=== PATIENT | female | born 1965 | race Caucasian/White ===

== ENCOUNTER 2017-01-22 21:00 | Emergency (ER) ==
[2017-01-22 21:13] VITALS: BP 142/89; TEMP 98.9; BMI 35.5
[2017-01-22 21:29] LABS: BASOPHILS % (AUTO) 0.5 % (0.0-3.0); EOSINOPHILS # (AUTO) 0.1 K/ul (0.0-0.7); EOSINOPHILS % (AUTO) 0.9 % (0.0-7.0); HEMATOCRIT 42.6 % (37.0-47.0); HEMOGLOBIN 14.4 g/dl (12.0-16.0); IMMATURE GRANULOCYTE % (AUTO) 0.2 % (0.0-5.0); LYMPHOCYTES # (AUTO) 2.7 K/uL (0.60-3.4); LYMPHOCYTES % (AUTO) 41.5 (10.0-50.0); MEAN CORPUSCULAR HEMOGLOBIN 31.2 pg (27.0-31.0); MEAN CORPUSCULAR HGB CONC 33.8 (31.8-35.4); MEAN CORPUSCULAR VOLUME 92.4 fl (81.0-99.0); MONOCYTES # (AUTO) 0.5 K/uL (0.4-2.0); MONOCYTES % (AUTO) 6.9 (0-10); NEUTROPHILS # (AUTO) 3.3 K/ul (2.0-6.9); PLATELET COUNT 251 10^3/uL (140-440); RED BLOOD COUNT 4.61 10^6/ul (4.20-5.40)
[2017-01-22 21:41] LABS: SERUM PREGNANCY INTERNAL QC INTERNAL QC VALID
[2017-01-22 21:41] LABS: BILIRUBIN,URINE Negative (NEGATIVE); KETONES,URINE Negative (NEGATIVE); LEUKOCYTE ESTERASE ,URINE Negative (NEGATIVE); NITRITE,URINE Negative (NEGATIVE); PROTEIN,URINE Negative (NEGATIVE); URINE, BLOOD 1+ (NEGATIVE)
[2017-01-22 21:42] LABS: PROTHROMBIN TIME 10.6 SEC (9.3-11.0)
[2017-01-22 21:47] LABS: ADD URINE MICROSCOPIC YES
[2017-01-22 21:51] LABS: COCAIN SCREEN,URINE NEGATIVE (NEGATIVE)
[2017-01-22 21:53] LABS: ALANINE AMINOTRANSFERASE 10 U/L (12-78); ALBUMIN 3.3 g/dL (3.4-5.0); ALKALINE PHOSPHATASE 75 U/L (42-98); ANION GAP 11.6; ASPARTATE AMINO TRANSFERASE 14 U/L (15-37); BILIRUBIN,TOTAL 0.31 mg/dL (0.00-1.20); BLOOD UREA NITROGEN 7 mg/dL (7-18); BUN/CREATININE RATIO 10.14; CALCIUM 8.7 mg/dL (8.2-10.2); CARBON DIOXIDE 22 mmol/L (21-32); CHLORIDE 110 mmol/L (98-107); CREATINE KINASE 49 U/L; CREATININE 0.69 mg/dL (0.60-1.30); GLUCOSE 93 mg/dL (70-110); POTASSIUM 3.6 mmol/L (3.5-5.10); SODIUM 140 mmol/L (136-145); TOTAL PROTEIN 6.6 g/dL (6.4-8.2)
[2017-01-22] MEDS ORDERED: ZOFRAN 4 MG/2 ML IVP STA (21:56)
[2017-01-22 22:00] LABS: ERYTHROCYTE SEDIMENTATION RATE 13 mm/hr (0-20); ESR INTERNAL QC INTERNAL QC VALID
--- NOTE | 2017-01-22 22:08 | CT ---
Examination: CT head without contrast 01/22/2017 Clinical information: Left-sided numbness. Comparison: 11/12/2014. TECHNIQUE: Noncontrast helical imaging from the foramen magnum to the vertex. 5 mm axial, 3 mm sag ittal and 3 mm coronal images are submitted for review. FINDINGS: There is no evidence of acute intracranial hemorrhage. There is a suggestion of a Chiari I malformation with approximately 7 mm of cerebellar tonsillar ectopia and crowding of the foramen magnum. The ventricles are normal in size and configuration. There is no mass effect, midline shif t or extra-axial abnormality. There is normal perkins-white matter differentiation. The calvarium is intact. No CT evidence of an acute ischemic infarct. Impression: 1. No CT evidence of acute intracranial abnormality. 2. Chiari I malformation. This finding could be more completely evaluated with non emergent MRI.
[2017-01-22] MEDS ORDERED: ASPIRIN EC PO STA (23:23)
--- NOTE | 2017-01-22 23:26 | ED.PDOC ---
General ED Provider: Dr. BJORN RAMIREZ-ER Chief Complaint: Stroke Stated Complaint: my mouth and left arm are numb Time Seen by Physician: 21:05 Mode of Arrival: Walk-In Information Source: Patient, Family Exam Limitations: No limitations Primary [facility] Nursing and Triage Documentation Reviewed and Agree: Yes Neurological Complaint Exam - Weakness Complaint/Exam Last Known Well: unknown ?yesterday Onset: Gradual Duration: several hours Symptoms Are: Still present Timing: Intermittent Initial Severity: Mild Current Severity: Mild Character: Reports: Dizzy Aggravating: Reports: None Alleviating: Reports: None Associated Signs and Symptoms: Reports: Unsteady gait. Denies: Nausea, Vomiting , Diaphoresis, Tinnitus, Chest pain, Short of air, Palpitations, GI blood loss, Visual changes, Decreased oral intake, Change in medication, Change in diet, OTC meds, Loss of balance Cardiac Risk Factors: Reports: Smoking CVA Risk Factors: Reports: None Related Surgical History: Reports: None JVD Present: No Carotid Bruit Present: No Rectal Heme Positive: No Glascow Coma Scale (see protocol): 15 Nystagmus Present: No Gag Reflex Present: Yes Meningeal Signs Positive: No Focal Weakness: Present: None Focal Sensory Loss: Present: None Gait: Normal [id number]: Normal Findings Romberg Test Positive: No Babinski Sign: Negative Right, Negative Left Heel to Toe Normal: Yes Ladson-Hallpike Test Positive: No Differential Diagnoses: Other Quality Indicator For Non-Traumatic Chest Pain/Syncope: EKG Performed Review of Systems - Review Of Systems Constitutional: Reports: No symptoms Eyes: Reports: No symptoms Ears, Nose, Mouth, Throat: Reports: No symptoms Respiratory: Reports: No symptoms Cardiac: Reports: No symptoms GI: Reports: No symptoms : Reports: No symptoms Musculoskeletal: Reports: No symptoms Skin: Reports: No symptoms Neurological: Reports: Tingling Endocrine: Reports: No symptoms Hematologic/Lymphatic: Reports: No symptoms All Other Systems: Reviewed and Negative Past Medical History - Past Medical History Endocrine: Reports: None Cardiovascular: Reports: None Respiratory: Reports: None Hematological: Reports: None Gastrointestinal: Reports: None Genitourinary: Reports: None Neuro/Psych: Reports: Anxiety Musculoskeletal: Reports: Other Cancer: Reports: None Last Menstrual Period: PRESENTLY - Surgical History General Surgical History: Reports: Other (STOMACH,anx) - Family History Family History: Reports: Stroke, Other (mother of CVA age 56 after having had neck pain), Unknown - Social History Smoking Status: Current every day smoker, Light tobacco smoker Hx Substance Use: No Alcohol Screening: None Lives: With family - Immunizations Tetanus Shot up to Date: Yes Physical Exam - Physical Exam Appearance: Well-appearing, No pain distress, Well-nourished Eyes: DENISHA ENT: Ears normal, Nose normal, Oropharynx normal Neck: Supple Respiratory: Airway patent, Breath sounds clear, Breath sounds equal, Respirations nonlabored Cardiovascular: RRR GI/: Soft Musculoskeletal: Normal strength Skin: Warm Neurological: Alert, Oriented Psychiatric: Affect appropriate, Mood appropriate, Anxious Interpretation - Radiology Interpretation Radiology Interpretation By: Radiologist Radiology Results: Negative Exam Interpreted: CT Scan - EKG Interpretation Time of EKG #1: 23:26 Rate: Normal Rhythm: Sinus Ectopy: None [place]: NL ST Segment: Normal Interpretation: nsr Physician Notification - Case Discussed Physician Notified: dr palacio--recommended [place] transfer for neurology consult Time of Notification: 00:13 Critical Care Note - Critical Care Note Total Time (mins): 0 Course - Course Hematology/Chemistry: 01/22/17 21:25 01/22/17 21:25 Orders, Labs, Meds: Lab Review 01/22/17 01/22/17 21:25 21:30 WBC 6.50 RBC 4.61 Hgb 14.4 Hct 42.6 MCV 92.4 MCH 31.2 H MCHC 33.8 RDW Coeff of Luis Manuel 13.3 Plt Count 251 Immature Gran % (Auto) 0.2 Neut % (Auto) 50.0 Lymph % (Auto) 41.5 [place] % (Auto) 6.9 Eos % (Auto) 0.9 Baso % (Auto) 0.5 Immature Gran # (Auto) 0.0 Neut # 3.3 Lymph # 2.7 [place] # 0.5 Eos # 0.1 Baso # 0.0 ESR 13 PT 10.6 INR 1.03 D-Dimer (Manual) 313.34 Sodium 140 Potassium 3.6 Chloride 110 H Carbon Dioxide 22 Anion Gap 11.6 BUN 7 Creatinine 0.69 Estimated GFR (MDRD) 90.00 BUN/Creatinine Ratio 10.14 Glucose 93 Calcium 8.7 Total Bilirubin 0.31 AST 14 L ALT 10 L Alkaline Phosphatase 75 Total Creatine Kinase 49 Troponin I < 0.0100 Total Protein 6.6 Albumin 3.3 L Globulin 3.3 Albumin/Globulin Ratio 1.00 Serum , Qual Negative Urine Color Yellow Urine Clarity Clear Urine pH 7.0 Ur Specific [place] 1.015 Urine Protein Negative Urine Glucose (UA) Negative Urine Ketones Negative Urine Blood 1+ Urine Nitrite Negative Urine Bilirubin Negative Urine Urobilinogen 0.2 Ur Leukocyte Esterase Negative Urine Microscopic RBC 0-2 Ur Squamous Epith Cells 2-5 Urine Opiates Screen Negative Ur Oxycodone Screen Negative Urine Methadone Screen Negative Ur Propoxyphene Screen Negative Ur Barbiturates Screen Negative U Tricyclic Antidepress Negative Ur Phencyclidine Scrn Negative Ur Amphetamine Screen Negative U Methamphetamines Scrn Negative U Benzodiazepines Scrn Positive Urine Cocaine Screen Negative U Cannabinoids Screen Negative Orders Category Date Time Status EKG-(ED ONLY) Stat CARDIO 01/22/17 21:16 Completed TRANSFER TO OUTSIDE FACILITY .TO [facility] 01/22/17 23:27 Active ([place], [place]) WRITE TRANSFER/SBAR NOTE ONCE CARE 01/22/17 23:27 Active DISCHARGE ASSESSMENT ONCE DISCHARGE 01/22/17 23:27 Active WRITE DISCHARGE NOTE ONCE DISCHARGE 01/22/17 23:27 Active 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] .ONCE EMERGENCY 01/22/17 21:17 Active IV [ED IV/MEDIPORT/POWERPORT] .ONCE EMERGENCY 01/22/17 21:21 Active CBC W/ AUTO DIFF Stat LAB 01/22/17 21:25 Completed COMPREHENSIVE METABOLIC PANEL Stat LAB 01/22/17 21:25 Completed CREATINE KINASE Stat LAB 01/22/17 21:25 Completed D-DIMER Stat LAB 01/22/17 21:25 Completed ESR Stat LAB 01/22/17 21:25 Completed PT WITH INR Stat LAB 01/22/17 21:25 Completed SERUM Stat LAB 01/22/17 21:25 Completed TROPONIN I Stat LAB 01/22/17 21:25 Completed URINALYSIS C & S IF INDICATED Stat LAB 01/22/17 21:30 Completed URINE DRUG SCREEN (RAPID FOR ED) [DRUG SCREEN, URINE, LAB 01/22/17 21:30 Completed RAPID] Stat 0.9 % Sodium Chloride [Saline Flush] MEDS 01/22/17 21:21 Discontinued 1 syr IVF PRN PRN Aspirin [Aspirin EC] MEDS 01/22/17 23:23 Discontinued 325 mg PO ONCE STA Ondansetron HCl/Pf [Zofran 4 mg/2 ml] MEDS 01/22/17 21:56 Discontinued 4 mg IVP ONCE STA CT HEAD W/O CONTRAST Stat RADS 01/22/17 21:20 Completed Medications Discontinued Medications Generic Name Dose Route Start Last Admin Trade Name Freq PRN Reason Stop Dose Admin Aspirin 325 mg 01/22/17 23:23 01/22/17 23:29 Aspirin Ec PO 01/22/17 23:24 325 mg ONCE STA Administration Ondansetron HCl 4 mg 01/22/17 21:56 01/22/17 22:00 Zofran 4 Mg/2 Ml IVP 01/22/17 21:57 4 mg ONCE STA Administration Sodium Chloride 1 syr 01/22/17 21:21 01/22/17 22:02 Saline Flush IVF 1 syr PRN PRN Administration To flush IV Vital Signs: Temp Pulse Resp BP Pulse Ox 01/22/17 21:01 98.9 F 96 H 18 142/89 H 94 L Departure - Departure Time of Disposition: 23:26 Disposition: TSF SHORT-TRM HOSP Discharge Problem: Numbness and tingling in left arm Instructions: Paresthesia (ED) Condition: Good Pt referred to PMD for follow-up: Yes Allergies/Adverse Reactions: Allergies codeine Adverse Reaction (Verified 01/22/17 21:11) Home Medications: Ambulatory Orders Ibuprofen [Motrin] 600 mg PO QID PRN #30 tablet 04/24/16 Alprazolam [Xanax Xr] 2 mg PO BID #60 07/13/16 Alprazolam [Xanax] 1 mg PO BID PRN #60 07/13/16 Transfer Form Completed: Yes Disposition Discussed With: Patient, Family
== END 2017-01-23 00:40 | disposition short-term general hospital (02) ==
LOC: ED 21:00
DX: R20.0 Anesthesia of skin (principal); R42 Dizziness and giddiness; R26.81 Unsteadiness on feet; F17.210 Nicotine dependence, cigarettes, uncomplicated; Z82.3 Family history of stroke
CPT/HCPCS: 36415; 80053; 80306; 81001; 82550; 84484; 84703; 85025; 85379; 85610; 85651; 93005; 93010; 96374; 99285

== ENCOUNTER 2017-08-22 13:28 | Emergency (ER) ==
[2017-08-22 13:43] VITALS: BP 130/85; TEMP 98.4; BMI 34.8
--- NOTE | 2017-08-22 13:56 | ED.PDOC ---
General ED Provider: Dr. TORRES ELISE Chief Complaint: Extremity Swelling/Pain Stated Complaint: Bilateral lower extremity swelling; chest pain last night; sore throat Time Seen by Physician: 13:45 Mode of Arrival: Walk-In Information Source: Patient Exam Limitations: No limitations Primary Care Provider: [facility] Nursing and Triage Documentation Reviewed and Agree: Yes Cardiovascular Complaint Exam - Chest Pain Complaint/Exam Onset: Gradual Duration: 2 hours Symptoms Are: Resolved Timing: Constant Initial Severity: Moderate Location: Reports: Left lateral Character: Reports: Sharp, Stabbing Aggravating: Reports: None Alleviating: Reports: None Associated Signs and Symptoms: Reports: Calf pain, Calf swelling (Bilateral swelling). Denies: Diaphoresis, Nausea, Vomiting, Fever, Palpitations, Cough, Hemoptysis, Back pain, Abdominal pain, Dizziness, Short of air Review of Systems - Review Of Systems Constitutional: Reports: No symptoms Cardiac: Reports: Chest pain (Last PM; believes gas pain) Musculoskeletal: Reports: Other (Bilateral lower leg edema) All Other Systems: Reviewed and Negative Past Medical History - Past Medical History Endocrine: Reports: None Cardiovascular: Reports: None Respiratory: Reports: None Hematological: Reports: None Gastrointestinal: Reports: None Genitourinary: Reports: None Neuro/Psych: Reports: Anxiety Musculoskeletal: Reports: Other Cancer: Reports: None Last Menstrual Period: hysterectomy - Surgical History General Surgical History: Reports: Other (STOMACH,anx) - Family History Family History: Reports: Stroke, Other (mother of CVA age 56 after having had neck pain), Unknown - Social History Smoking Status: Current every day smoker, Light tobacco smoker Hx Substance Use: No Alcohol Screening: None Physical Exam - Physical Exam Appearance: Ill-appearing Ill-appearing: Mild (Post op from Sunday hysterectomy - on pain medicaitons) Pain Distress: Mild Eyes: DENISHA, EOMI, Conjunctiva clear ENT: Nose normal, Oropharynx normal Neck: Supple Respiratory: Airway patent, Breath sounds clear, Breath sounds equal Cardiovascular: RRR, Pulses normal GI/: Soft, Nontender Musculoskeletal: Normal strength, ROM intact, Edema (Bilateral LE edema - non pitting) Skin: Warm, Dry, Normal color Neurological: Sensation intact, Motor intact, Alert, Oriented Psychiatric: Affect appropriate, Mood appropriate Interpretation - EKG Interpretation Time of EKG #1: 14:06 Rate: Normal Rhythm: Sinus Ectopy: None [place]: NL ST Segment: Normal Interpretation: No acute changes Critical Care Note - Critical Care Note Total Time (mins): 35 Course - Course Hematology/Chemistry: 08/22/17 14:00 08/22/17 14:00 Orders, Labs, Meds: Lab Review 08/22/17 08/22/17 14:00 14:00 WBC 6.18 RBC 3.85 L Hgb 12.3 Hct 36.1 L MCV 93.8 MCH 31.9 H MCHC 34.1 RDW Coeff of Luis Manuel 13.3 Plt Count 219 Immature Gran % (Auto) 0.3 Neut % (Auto) 65.4 Lymph % (Auto) 26.1 [place] % (Auto) 6.8 Eos % (Auto) 1.1 Baso % (Auto) 0.3 Immature Gran # (Auto) 0.0 Neut # 4.0 Lymph # 1.6 [place] # 0.4 Eos # 0.1 Baso # 0.0 Sodium 140 Potassium 3.7 Chloride 105 Carbon Dioxide 29 Anion Gap 9.7 BUN 8 Creatinine 0.70 Estimated GFR (MDRD) 89.00 BUN/Creatinine Ratio 11.42 Glucose 94 Calcium 8.5 Total Bilirubin 0.37 AST 97 H ALT 93 H Alkaline Phosphatase 157 H Troponin I < 0.0100 Total Protein 6.5 Albumin 2.8 L Globulin 3.7 Albumin/Globulin Ratio 0.76 Orders Category Date Time Status EKG-(ED ONLY) Stat CARDIO 08/22/17 13:56 Completed CBC W/ AUTO DIFF Stat LAB 08/22/17 14:00 Completed COMPREHENSIVE METABOLIC PANEL Stat LAB 08/22/17 14:00 Completed MOLECULAR GROUP A STREP Stat LAB 08/22/17 14:20 Results STREP SCREEN Stat LAB 08/22/17 14:20 Results TROPONIN I Stat LAB 08/22/17 14:00 Completed CHEST, 1V AP ONLY Stat RADS 08/22/17 13:56 Completed ULTRASOUND VENOUS SCAN PRAVEEN LEGS [U/S VENOUS SCAN PRAVEEN RADS 08/22/17 13:58 Completed LEGS] Stat Strep reported negataive, Vital Signs: Temp Pulse Resp BP Pulse Ox 08/22/17 13:28 98.4 F 81 20 130/85 95 ESTEE Risk Score ESTEE Risk Score: Risk Score Odds of by 30D 0 0.1 (0.1-0.2) 1 0.3 (0.2-0.3) 2 0.4 (0.3-0.5) 3 0.7 (0.6-0.9) 4 1.2 (1.0-1.5) 5 2.2 (1.9-2.6) 6 3.0 (2.5-3.6) 7 4.8 (3.8-6.1) Departure - Departure Time of Disposition: 16:17 Disposition: HOME SELF-CARE Discharge Problem: Edema of both legs Instructions: Leg Edema (ED) Condition: Good Pt referred to PMD for follow-up: Yes (Call for appointment) Additional Instructions: Resume usual medicaitons and post op instructions; elevate legs just above hear level as often as possible Allergies/Adverse Reactions: Allergies codeine Adverse Reaction (Verified 08/22/17 13:42) Home Medications: Ambulatory Orders Ibuprofen [Motrin] 600 mg PO QID PRN #30 tablet 04/24/16 Ondansetron HCl [Zofran] 4 mg PO Q6HR PRN 08/22/17 Oxycodone HCl/Acetaminophen [Percocet 7.5-325 mg Tablet] 1 each PO Q6HR PRN
[2017-08-22 14:11] LABS: BASOPHILS % (AUTO) 0.3 % (0.0-3.0); EOSINOPHILS # (AUTO) 0.1 K/ul (0.0-0.7); EOSINOPHILS % (AUTO) 1.1 % (0.0-7.0); HEMATOCRIT 36.1 % (37.0-47.0); HEMOGLOBIN 12.3 g/dl (12.0-16.0); IMMATURE GRANULOCYTE % (AUTO) 0.3 % (0.0-5.0); LYMPHOCYTES # (AUTO) 1.6 K/uL (0.60-3.4); LYMPHOCYTES % (AUTO) 26.1 (10.0-50.0); MEAN CORPUSCULAR HEMOGLOBIN 31.9 pg (27.0-31.0); MEAN CORPUSCULAR HGB CONC 34.1 (31.8-35.4); MEAN CORPUSCULAR VOLUME 93.8 fl (81.0-99.0); MONOCYTES # (AUTO) 0.4 K/uL (0.4-2.0); MONOCYTES % (AUTO) 6.8 (0-10); NEUTROPHILS % (AUTO) 65.4; PLATELET COUNT 219 10^3/uL (140-440); RED BLOOD COUNT 3.85 10^6/ul (4.20-5.40); WHITE BLOOD COUNT 6.18 K/ul (4.6-10.2)
--- NOTE | 2017-08-22 15:10 | DI ---
Exam: Single x-ray of the chest. Comparison: 07/03/2016. Reason for exam: Chest pain. FINDINGS: No pneumothorax, pleural effusion, or focal consolidation. The cardiac silhouette is not enlarged. The imaged osseous structures appear grossly unremarkable without acute fracture. There is a linear density in the left femoral head likely representing summation artifact. Impression: 1. No acute cardiopulmonary process. 2. Subtle linear density in the left femoral head is likely secondary to summation artifact. If cli nical concern exists for fracture. Dedicated x-rays of the left shoulder may be performed for furthe r characterization.
[2017-08-22 15:20] LABS: ALANINE AMINOTRANSFERASE 93 U/L (12-78); ALBUMIN 2.8 g/dL (3.4-5.0); ALBUMIN/GLOBULIN RATIO 0.76; ALKALINE PHOSPHATASE 157 U/L (42-98); ANION GAP 9.7; ASPARTATE AMINO TRANSFERASE 97 U/L (15-37); BILIRUBIN,TOTAL 0.37 mg/dL (0.00-1.20); BLOOD UREA NITROGEN 8 mg/dL (7-18); BUN/CREATININE RATIO 11.42; CALCIUM 8.5 mg/dL (8.2-10.2); CARBON DIOXIDE 29 mmol/L (21-32); CHLORIDE 105 mmol/L (98-107); GLUCOSE 94 mg/dL (70-110); POTASSIUM 3.7 mmol/L (3.5-5.10); SODIUM 140 mmol/L (136-145); TOTAL PROTEIN 6.5 g/dL (6.4-8.2)
--- NOTE | 2017-08-22 15:34 | US ---
EXAM: Bilateral lower extremity venous doppler. HISTORY: Bilateral lower extremity pain and swelling. Recent hysterectomy. COMPARISON: None available. TECHNIQUE: Multiple grayscale and color doppler images were obtained. FINDINGS: There is normal flow, compressibility and augmentation of flow within the right and left c ommon femoral, greater saphenous, profunda, femoral, popliteal, posterior tibial, anterior tibial and peroneal veins. IMPRESSION: No evidence for right or left lower extremity deep vein thrombosis at the levels examined.
== END 2017-08-22 16:30 | disposition home or self-care (01) ==
LOC: ED 13:28
DX: R60.0 Localized edema (principal); J02.9 Acute pharyngitis, unspecified; Z98.890 Other specified postprocedural states; F17.210 Nicotine dependence, cigarettes, uncomplicated
CPT/HCPCS: 36415; 80053; 84484; 85025; 87651; 87880; 93005; 93010; 99283

== ENCOUNTER 2017-12-14 11:59 | Emergency (ER) | payer OTHER ==
[2017-12-14 12:06] VITALS: BP 132/84; TEMP 97.8; BMI 35.0
[2017-12-14] MEDS ORDERED: TORADOL IM STA (12:21)
[2017-12-14] MEDS ORDERED: ZOFRAN 4 MG/2 ML IM STA (12:46)
--- NOTE | 2017-12-14 13:06 | CT ---
EXAM: CT scan abdomen pelvis without contrast HISTORY: Left flank pain COMPARISON: None. FINDINGS: Contiguous axial images obtained through the abdomen pelvis without contrast utilizing 3-m m collimation. Sagittal and coronal reconstructions were imaged and reviewed.. The visualized lung bases are clear. Gallstones are seen within the gallbladder. The liver pancreas spleen and adrenal glands have normal unenhanced CT appearance. The abdominal aorta is normal course and caliber withou t aneurysm formation. There is umbilical hernia containing only fat. There is normal appendix. The re has been prior hysterectomy.. There is minimal diverticulosis without diverticulitis. There is mo derate left-sided perinephric stranding which extends along the proximal ureter there is no significa nt hydronephrosis, hydroureter, nephrolithiasis ureterolithiasis. The findings may be related recent passage of a calculus versus infection. The bladder is small volumed and incompletely evaluated. IMPRESSION: Left-sided perinephric stranding which involves the proximal ureter without evidence of nephrolithias is or ureterolithiasis. . Consider recent passage of a calculus versus infection.
[2017-12-14] MEDS ORDERED: LIDOCAINE HCL 1% SDV IM STA (13:27)
[2017-12-14] MEDS ORDERED: ROCEPHIN IM STA (13:27)
--- NOTE | 2017-12-14 13:36 | ED.PDOC ---
General ED Provider: Dr. ZARINA ACOSTA Chief Complaint: Urinary Problem Stated Complaint: flank pain left Time Seen by Physician: 12:00 Mode of Arrival: Walk-In Information Source: Patient Exam Limitations: No limitations [facility] Nursing and Triage Documentation Reviewed and Agree: Yes Reviewed sepsis parameters & appropriate labs ordered?: Yes System Inflammatory Response Syndrome: Not Applicable Sepsis Protocol: For patient's 13 years and over: Temp is 96.8 and below OR 101 and greater Pulse >90 BPM Resp >20/minute Acutely Altered Mental Status Are patient's symptoms suggestive of a new infection, such as: -Pneumonia -Skin, Soft Tissue -Endocarditis -UTI -Bone, Joint Infection -Implantable Device -Acute Abdominal Infection -Wound Infection -Meningitis -Blood Stream Catheter Infection -Unknown System Inflammatory Response Syndrome: Not Applicable Musculoskeletal Complaint Exam - Back Pain Complaint/Exam Mechanism of Injury: Reports: No known trauma Onset/Duration: back pain 14 hrs ago mainly left flank apin Symptoms Are: Still present Timing: Constant Episodes Lasting: Hours Initial Severity: Moderate Current Severity: Moderate Location: Reports: Discrete Character: Reports: Aching, Spasmodic Aggravating: Reports: Movements Alleviating: Reports: None Associated Signs and Symptoms: Denies: Swelling, Redness, Bruising, Fever, Weakness, Numbness, Tingling, Abdominal pain, Flank pain, Bladder incontinence, Bowel incontinence, Weight loss, Pain with weight bearing TAD Risk Factors: Reports: None AAA Risk Factors: Reports: None Cauda Equina Risk Factors: Reports: None Epidural Abcess Risk Factors: Reports: None Related Surgical History: Reports: None Focal Tenderness: No Paraspinal Muscle Tenderness: No Paraspinal Muscle Spasm: No Scoliosis: No Lordosis: No Kyphosis: No SLR Test: Right Negative, Left Negative Hip Motion Testing Pain: Right Negative, Left Negative Focal Weakness: Present: None Focal Sensory Loss: Present: None Review of Systems - Review Of Systems Constitutional: Reports: No symptoms Eyes: Reports: No symptoms Ears, Nose, Mouth, Throat: Reports: No symptoms Respiratory: Reports: No symptoms Cardiac: Reports: No symptoms GI: Reports: No symptoms : Reports: Dysuria, Flank pain Musculoskeletal: Reports: No symptoms Skin: Reports: No symptoms Neurological: Reports: No symptoms Endocrine: Reports: No symptoms Hematologic/Lymphatic: Reports: No symptoms All Other Systems: Reviewed and Negative Past Medical History - Past Medical History Previously Healthy: Yes Endocrine: Reports: None Cardiovascular: Reports: None Respiratory: Reports: None Hematological: Reports: None Gastrointestinal: Reports: None Genitourinary: Reports: None Neuro/Psych: Reports: Anxiety Musculoskeletal: Reports: Other Cancer: Reports: None Last Menstrual Period: hysterectomy - Surgical History General Surgical History: Reports: Other (STOMACH,anx) - Family History Family History: Reports: Stroke, Other (mother of CVA age 56 after having had neck pain), Unknown - Social History Smoking Status: Current every day smoker, Light tobacco smoker Hx Substance Use: No Alcohol Screening: None Physical Exam - Physical Exam Appearance: Well-appearing, No pain distress, Well-nourished Eyes: DENISHA, EOMI, Conjunctiva clear ENT: Ears normal, Nose normal, Oropharynx normal Respiratory: Airway patent, Breath sounds clear, Breath sounds equal, Respirations nonlabored Cardiovascular: RRR, Pulses normal, No rub, No murmur GI/: Soft, Nontender, No masses, Bowel sounds normal, No Organomegaly Musculoskeletal: Normal strength, ROM intact, No edema, No calf tenderness Skin: Warm, Dry, Normal color Neurological: Sensation intact, Motor intact, Reflexes intact, Cranial nerves intact, Alert, Oriented Psychiatric: Affect appropriate, Mood appropriate Critical Care Note - Critical Care Note Total Time (mins): 0 Course - Course Hematology/Chemistry: 12/14/17 12:30 12/14/17 12:30 Orders, Labs, Meds: Lab Review 12/14/17 12/14/17 12/14/17 12:20 12:30 12:30 WBC 6.98 RBC 4.22 Hgb 13.3 Hct 39.3 MCV 93.1 MCH 31.5 H MCHC 33.8 RDW Coeff of Luis Manuel 14.3 Plt Count 206 Immature Gran % (Auto) 0.3 Neut % (Auto) 71.2 Lymph % (Auto) 17.6 [place] % (Auto) 10.2 H Eos % (Auto) 0.3 Baso % (Auto) 0.4 Immature Gran # (Auto) 0.0 Neut # (Auto) 5.0 Lymph # (Auto) 1.2 [place] # (Auto) 0.7 Eos # (Auto) 0.0 Baso # (Auto) 0.0 Sodium 142 Potassium 4.1 Chloride 108 H Carbon Dioxide 25 Anion Gap 13.1 BUN 14 Creatinine 0.78 Estimated GFR (MDRD) 78.00 BUN/Creatinine Ratio 17.94 Glucose 97 Calcium 9.2 Total Bilirubin 0.7 AST 16 ALT 10 L Alkaline Phosphatase 88 Total Protein 6.9 Albumin 3.3 L Globulin 3.6 Albumin/Globulin Ratio 0.92 Urine Color Yellow Urine Clarity Clear Urine pH 6.5 Ur Specific [place] 1.010 Urine Protein 1+ Urine Glucose (UA) Negative Urine Ketones Negative Urine Blood 3+ Urine Nitrite Negative Urine Bilirubin Negative Urine Urobilinogen 0.2 Ur Leukocyte Esterase Negative Urine Microscopic RBC 10-20 Urine Microscopic WBC Not Reportable Ur Squamous Epith Cells 2-5 Orders Category Date Time Status CBC W/ AUTO DIFF Stat LAB 12/14/17 12:30 Completed COMPREHENSIVE METABOLIC PANEL Stat LAB 12/14/17 12:30 Completed URINALYSIS C & S IF INDICATED Stat LAB 12/14/17 12:20 Completed Ketorolac Tromethamine [Toradol] MEDS 12/14/17 12:21 Discontinued 60 mg IM ONCE STA Lidocaine HCl/Pf [Lidocaine HCl 1% Sdv] MEDS 12/14/17 13:27 Discontinued 2.1 ml IM ONCE STA Ondansetron HCl/Pf [Zofran 4 mg/2 ml] MEDS 12/14/17 12:46 Discontinued 4 mg IM ONCE STA CT ABD/PEL WO RENAL STONE PROT Stat RADS 12/14/17 12:20 Completed Medications Discontinued Medications Generic Name Dose Route Start Last Admin Trade Name Freq PRN Reason Stop Dose Admin Ketorolac Tromethamine 60 mg 12/14/17 12:21 12/14/17 12:34 Toradol IM 12/14/17 12:22 60 mg ONCE STA Administration Lidocaine HCl 2.1 ml 12/14/17 13:27 Lidocaine Hcl 1% Sdv IM 12/14/17 13:28 ONCE STA Ondansetron HCl 4 mg 12/14/17 12:46 12/14/17 12:56 Zofran 4 Mg/2 Ml IM 12/14/17 12:47 4 mg ONCE STA Administration Vital Signs: Temp Pulse Resp BP Pulse Ox 12/14/17 12:00 97.8 F 94 H 20 132/84 95 Departure - Departure Time of Disposition: 13:38 Disposition: HOME SELF-CARE Discharge Problem: Urinary symptoms, Kidney stone Instructions: Renal Colic (ED), Urinary Tract Infection in Women (DC) Condition: Good Pt referred to PMD for follow-up: Yes IPMP verified?: Yes Prescriptions: Hydrocodone/Acetaminophen [[place] 10-325 Tablet] 1 each PO Q8HR #7 tablet Ciprofloxacin HCl [Cipro] 500 mg PO Q12HR 5 Days #10 tablet Allergies/Adverse Reactions: Allergies codeine Adverse Reaction (Verified 08/22/17 13:42) Home Medications: Ambulatory Orders Ibuprofen [Motrin] 600 mg PO QID PRN #30 tablet 04/24/16 Ciprofloxacin HCl [Cipro] 500 mg PO Q12HR 5 Days #10 tablet 12/14/17 Hydrocodone/Acetaminophen [Grandin 10-325 Tablet] 1 each PO Q8HR #7 tablet
== END 2017-12-14 13:47 | disposition home or self-care (01) ==
LOC: ED 11:59
DX: N20.0 Calculus of kidney (principal); F17.210 Nicotine dependence, cigarettes, uncomplicated
CPT/HCPCS: 36415; 74176; 80053; 81001; 85025; 96372; 99283

== ENCOUNTER 2018-01-25 08:05 | Outpatient (CLI) ==
--- NOTE | 2018-01-25 10:34 | MAMMO ---
EXAM: Digital screening mammogram with tomosynthesis HISTORY: Screening COMPARISON: 08/21/2013 FINDINGS: Digital MLO and CC views of the right and left breast were performed. Tomosynthesis was performed. Computer aided detection was utilized. There are scattered fibroglandular densities. Tobin ign calcifications and a benign lymph node in the left breast. There is no evidence for mass, asymme try, distortion, or suspicious calcifications in either breast. IMPRESSION: 1. No evidence of malignancy in the right or left breast. 2. Annual screening mammogram is recommended in one year. BIRADS category 2, benign
== END 2018-01-25 08:06 | disposition home or self-care (01) ==
LOC: RAD 08:05
PROVIDERS: ATTEND Nurse Practitioner Family
DX: Z12.31 Encounter for screening mammogram for malignant neoplasm of breast (principal)
CPT/HCPCS: 77067

== ENCOUNTER 2018-02-04 08:17 | Outpatient (CLI) | END 2018-02-04 08:18 | disposition home or self-care (01) | LOC: CAR 08:17 | PROVIDERS: ATTEND Nurse Practitioner Family | DX: E66.3 Overweight (principal); Z72.0 Tobacco use | CPT/HCPCS: 36415; 80053; 80061; 84443; 93005; 93010 ==

== ENCOUNTER 2018-02-06 08:49 | Outpatient (CLI) | END 2018-02-06 08:50 | disposition home or self-care (01) | LOC: CAR 08:49 | PROVIDERS: ATTEND Nurse Practitioner Family | DX: R05 Cough (principal); R06.02 Shortness of breath; Z72.0 Tobacco use ==

== ENCOUNTER 2018-02-25 08:45 | Outpatient (CLI) | END 2018-02-25 08:46 | disposition home or self-care (01) | LOC: LAB 08:45 | PROVIDERS: ATTEND Nurse Practitioner Family | DX: R94.6 Abnormal results of thyroid function studies (principal) | CPT/HCPCS: 36415; 84439; 84443 ==

== ENCOUNTER 2018-09-27 14:14 | Outpatient (CLI) | END 2018-09-27 14:15 | disposition home or self-care (01) | LOC: RHC-LAB 14:14 | PROVIDERS: ATTEND Nurse Practitioner Family | DX: J02.9 Acute pharyngitis, unspecified (principal) | CPT/HCPCS: 87651 ==

== ENCOUNTER 2019-02-14 23:11 | Emergency (ER) ==
[2019-02-14 23:26] VITALS: BP 115/83; TEMP 97.2; BMI 32.5
--- NOTE | 2019-02-14 23:42 | ED.PDOC ---
General ED Provider: Dr. SAMEER BLACK Chief Complaint: Chest Pain Stated Complaint: 53 y old stating 1000 lb on my chest it is stress.EKG is normal SR without. aberration,Pt not in distress, Time Seen by Physician: 23:20 Mode of Arrival: Walk-In Information Source: Patient Exam Limitations: No limitations Primary Care Provider: CODY NGUYỄN Nursing and Triage Documentation Reviewed and Agree: Yes Does patient meet sepsis criteria?: No System Inflammatory Response Syndrome: Not Applicable Sepsis Protocol: For patient's 13 years and over: Temp is 96.8 and below OR 101 and greater Pulse >90 BPM Resp >20/minute Acutely Altered Mental Status Are patient's symptoms suggestive of a new infection, such as: -Pneumonia -Skin, Soft Tissue -Endocarditis -UTI -Bone, Joint Infection -Implantable Device -Acute Abdominal Infection -Wound Infection -Meningitis -Blood Stream Catheter Infection -Unknown Cardiovascular Complaint Exam - Chest Pain Complaint/Exam Duration: intermitent Symptoms Are: Resolved Timing: Intermittent Length of Chest Pain Episodes: hours Initial Severity: Mild Current Severity: None Location: Reports: Upper sternal Pain Radiates: Reports: Other Character: Reports: Heaviness Aggravating: Reports: None Alleviating: Reports: Rest Related History: Reports: Other Related Surgical History: Reports: None History of Healthcare-Acquired Pneumonia: Reports: No AMI/ACS Risk Factors: Reports: None TAD Risk Factors: Reports: None Pulmonary Embolism Risk Factors: Reports: None Prior Care for this Complaint: Yes Recent Stress Test: No Recent Echo/LV Function: No JVD Present: No Subcutaneous Emphysema Present: No Diminshed Breath Sounds: No Reproducible Chest Wall Pain: No Bilateral Pulses Present: No Unequal Pulses Noted: No If Risk Factors for AMI/ACS Consider: Cardiac Enzymes If Risk Factors for TAD Consider: Blood pressure control Documents Reviewed: EKG Differential Diagnoses: Unstable Angina, Chest Wall Pain Quality Indicator For Non-Traumatic Chest Pain/Syncope: EKG Performed Review of Systems - Review Of Systems Constitutional: Reports: No symptoms Eyes: Reports: No symptoms Ears, Nose, Mouth, Throat: Reports: No symptoms Respiratory: Reports: No symptoms Cardiac: Reports: No symptoms GI: Reports: No symptoms : Reports: No symptoms Musculoskeletal: Reports: No symptoms Skin: Reports: No symptoms Neurological: Reports: No symptoms Endocrine: Reports: No symptoms Hematologic/Lymphatic: Reports: No symptoms All Other Systems: Reviewed and Negative Past Medical History - Past Medical History Previously Healthy: Yes Endocrine: Reports: None Cardiovascular: Reports: None Respiratory: Reports: None Hematological: Reports: None Gastrointestinal: Reports: None Genitourinary: Reports: None Neuro/Psych: Reports: Anxiety Musculoskeletal: Reports: Other Cancer: Reports: None Last Menstrual Period: 2016 hyst - Surgical History General Surgical History: Reports: Other (STOMACH,anx) - Family History Family History: Reports: Stroke, Other (mother of CVA age 56 after having had neck pain), Unknown - Social History Smoking Status: Current every day smoker, Light tobacco smoker Hx Substance Use: No Alcohol Screening: None - Immunizations Tetanus Shot up to Date: Yes Physical Exam - Physical Exam Appearance: Well-appearing Ill-appearing: None Pain Distress: None Eyes: DENISHA, EOMI, Conjunctiva clear ENT: Ears normal, Nose normal Neck: Supple Respiratory: Airway patent, Breath sounds clear, Breath sounds equal Cardiovascular: RRR, Pulses normal GI/: Soft, Nontender Musculoskeletal: Normal strength, ROM intact Skin: Warm, Dry Neurological: Sensation intact, Motor intact, Reflexes intact, Cranial nerves intact, Alert, Oriented Psychiatric: Affect appropriate Critical Care Note - Critical Care Note Total Time (mins): 0 Course - Course Hematology/Chemistry: 02/15/19 00:20 02/15/19 00:20 Orders, Labs, Meds: Lab Review 02/15/19 02/15/19 02/15/19 00:20 00:20 00:20 WBC 5.57 RBC 4.22 Hgb 14.4 Hct 42.1 MCV 99.8 H MCH 34.1 H MCHC 34.2 RDW Coeff of Luis Manuel 14.1 Plt Count 230 Immature Gran % (Auto) 0.2 Neut % (Auto) 53.3 Lymph % (Auto) 39.0 Bremer % (Auto) 6.3 Eos % (Auto) 0.5 Baso % (Auto) 0.7 Immature Gran # (Auto) 0.0 Neut # (Auto) 3.0 Lymph # (Auto) 2.2 Bremer # (Auto) 0.4 Eos # (Auto) 0.0 Baso # (Auto) 0.0 Sodium 141.1 Potassium 3.13 L Chloride 106.6 Carbon Dioxide 25.5 Anion Gap 12.13 BUN 9.5 Creatinine 0.63 Estimated GFR (MDRD) 100.00 BUN/Creatinine Ratio 15.07 Glucose 86.9 Calcium 9.34 Total Bilirubin 0.85 AST 26.1 ALT 15.5 Alkaline Phosphatase 93.2 Troponin I < 0.012 Total Protein 7.07 Albumin 4.07 Globulin 3.00 Albumin/Globulin Ratio 1.35 Urine Color Urine Clarity Urine pH Ur Specific [place] Urine Protein Urine Glucose (UA) Urine Ketones Urine Blood Urine Nitrite Urine Bilirubin Urine Urobilinogen Ur Leukocyte Esterase Urine Microscopic RBC Urine Microscopic WBC Ur Squamous Epith Cells Urine Bacteria Urine Mucus 02/15/19 00:23 WBC RBC Hgb Hct MCV MCH MCHC RDW Coeff of Luis Manuel Plt Count Immature Gran % (Auto) Neut % (Auto) Lymph % (Auto) Bremer % (Auto) Eos % (Auto) Baso % (Auto) Immature Gran # (Auto) Neut # (Auto) Lymph # (Auto) Bremer # (Auto) Eos # (Auto) Baso # (Auto) Sodium Potassium Chloride Carbon Dioxide Anion Gap BUN Creatinine Estimated GFR (MDRD) BUN/Creatinine Ratio Glucose Calcium Total Bilirubin AST ALT Alkaline Phosphatase Troponin I Total Protein Albumin Globulin Albumin/Globulin Ratio Urine Color Dark Urine Clarity Clear Urine pH 6.0 Ur Specific [place] 1.020 Urine Protein 1+ Urine Glucose (UA) Negative Urine Ketones 1+ Urine Blood 1+ Urine Nitrite Negative Urine Bilirubin 1+ Urine Urobilinogen 0.2 Ur Leukocyte Esterase Negative Urine Microscopic RBC 5-10 Urine Microscopic WBC 2-5 Ur Squamous Epith Cells 5-10 Urine Bacteria Trace Urine Mucus 2+ Orders Category Date Time Status EKG-(ED ONLY) Stat CARDIO 02/14/19 23:58 Completed NEBULIZER TREATMENT Stat CARDIO 02/15/19 01:09 Ordered CBC W/ AUTO DIFF Stat LAB 02/14/19 23:57 Completed COMPREHENSIVE METABOLIC PANEL Stat LAB 02/14/19 23:57 Completed TROPONIN I Stat LAB 02/14/19 23:58 Completed URINALYSIS C & S IF INDICATED Stat LAB 02/15/19 00:23 Completed Albuterol Sulfate 0.083% Neb [Albuterol 0.083% Neb] MEDS 02/15/19 01:09 Discontinued 1 vial NEB ONCE STA Aspirin [Aspirin Chewable] MEDS 02/15/19 00:00 Discontinued 81 mg PO ONCE STA CHEST, 2 VIEWS PA & LAT Stat RADS 02/14/19 23:58 Completed Medications Discontinued Medications Generic Name Dose Route Start Last Admin Trade Name Freq PRN Reason Stop Dose Admin Albuterol Sulfate 1 vial 02/15/19 01:09 02/15/19 01:15 Albuterol 0.083% Neb NEB 02/15/19 01:10 1 vial ONCE STA Administration Aspirin 81 mg 02/15/19 00:00 02/15/19 00:19 Aspirin Chewable PO 02/15/19 00:01 81 mg ONCE STA Administration Vital Signs: Temp Pulse Resp BP Pulse Ox 02/14/19 23:14 97.2 F L 78 20 115/83 100 ESTEE Risk Score ESTEE Risk Score: Risk Score Odds of by 30D 0 0.1 (0.1-0.2) 1 0.3 (0.2-0.3) 2 0.4 (0.3-0.5) 3 0.7 (0.6-0.9) 4 1.2 (1.0-1.5) 5 2.2 (1.9-2.6) 6 3.0 (2.5-3.6) 7 4.8 (3.8-6.1) Departure - Departure Time of Disposition: 01:49 Disposition: HOME SELF-CARE Discharge Problem: COPD (chronic obstructive pulmonary disease) Instructions: Shortness of Breath (ED) Condition: Good Pt referred to PMD for follow-up: Yes IPMP verified?: No Allergies/Adverse Reactions: Allergies codeine Adverse Reaction (Verified 02/14/19 23:26) Home Medications: Ambulatory Orders Ibuprofen [Motrin] 600 mg PO QID PRN #30 tablet 04/24/16 Dextroamphetamine/Amphetamine [Adderall 20 Mg Tablet] 20 mg PO BID 09/27/18 Albuterol Sulfate 1 vial INH Q4-6H PRN 02/14/19 Albuterol Sulfate 0.083% Neb [Albuterol 0.083% Neb] 1 - 2 puff INH Q4-6H PRN 03/28 Disposition Discussed With: Patient, Family
[2019-02-15] MEDS: ASPIRIN CHEWABLE PO STA (00:19)
--- NOTE | 2019-02-15 00:42 | DI ---
EXAM: PA and lateral views of the chest. HISTORY: Chest heaviness. FINDINGS: The bones are unremarkable. The cardiac silhouette and pulmonary vasculature are within n ormal limits. The costophrenic angles are clear. There are calcified granulomas. No infiltrate or consolidation. Impression: No acute cardiopulmonary disease.
[2019-02-15] MEDS: ALBUTEROL 0.083% NEB NEB STA (01:15)
== END 2019-02-15 02:12 | disposition home or self-care (01) ==
LOC: ED 23:11
DX: J44.9 Chronic obstructive pulmonary disease, unspecified (principal); R07.9 Chest pain, unspecified; F17.210 Nicotine dependence, cigarettes, uncomplicated
CPT/HCPCS: 36415; 80053; 81001; 84484; 85025; 93005; 93010; 94640; 99283

== ENCOUNTER 2019-05-08 10:59 | Outpatient (CLI) | payer OTHER ==
[2019-04-10 11:35] VITALS: BMI 30.7
== END 2019-05-08 11:00 | disposition home or self-care (01) ==
LOC: RHC-LAB 10:59
PROVIDERS: ATTEND Nurse Practitioner Family
DX: M79.604 Pain in right leg (principal); M79.605 Pain in left leg; M79.89 Other specified soft tissue disorders; R53.83 Other fatigue; R71.8 Other abnormality of red blood cells; Z72.0 Tobacco use
CPT/HCPCS: 36415; 80053; 80061; 82306; 82607; 84443

== ENCOUNTER 2019-05-15 13:17 | Outpatient (CLI) ==
[2019-04-10 11:35] VITALS: BMI 30.7
--- NOTE | 2019-05-15 13:54 | DI ---
EXAM: Two views of the chest. History: Tobacco use, chest pain. Comparison: Chest radiograph 02/15/2019 Findings: Heart size is normal. No focal consolidation. No appreciable pleural fluid and no pneumo thorax. No acute osseous abnormalities. Impression: No acute cardiopulmonary process
== END 2019-05-15 13:18 | disposition home or self-care (01) ==
LOC: RAD 13:17
PROVIDERS: ATTEND Nurse Practitioner Family
DX: R07.89 Other chest pain (principal); Z72.0 Tobacco use

== ENCOUNTER 2019-09-18 18:31 | Inpatient (IN) ==
[2019-09-18 18:39] VITALS: BMI 31.7
[2019-09-18] MEDS ORDERED: DUONEB NEB STA (18:55)
[2019-09-18] MEDS ORDERED: SODIUM CHLORIDE 1,000 ML IV STA (18:59)
[2019-09-18] MEDS: SOLU-MEDROL 125 MG IVP SCH ×2 (19:02→23:59)
[2019-09-18 19:09] LABS: HEMATOCRIT 44.7 % (37.0-47.0)
--- NOTE | 2019-09-18 19:29 | ED.PDOC ---
General <BJORN HYDE DO - Last Filed: 09/19/19 13:57> ED Provider: Dr. BJORN HYDE Chief Complaint: Shortness of Air Stated Complaint: Cough /congestion and short of breath. Evaluated and tx outpatient on Sunday and given antibiotics& steroids. Is worse today Time Seen by Physician: 18:45 Mode of Arrival: Walk-In Information Source: Patient Exam Limitations: No limitations Primary Care Provider: CODY NGUYỄN APRN Nursing and Triage Documentation Reviewed and Agree: Yes Does patient meet sepsis criteria?: No System Inflammatory Response Syndrome: Not Applicable Sepsis Protocol: For patient's 13 years and over: Temp is 96.8 and below OR 101 and greater Pulse >90 BPM Resp >20/minute Acutely Altered Mental Status Are patient's symptoms suggestive of a new infection, such as: -Pneumonia -Skin, Soft Tissue -Endocarditis -UTI -Bone, Joint Infection -Implantable Device -Acute Abdominal Infection -Wound Infection -Meningitis -Blood Stream Catheter Infection -Unknown Respiratory Complaint Exam <BJORN HYDE DO - Last Filed: 09/19/19 13:57> Shortness of Air Complaint/Exam Onset/Duration: 4 days Symptoms Are: Worse Timing: Intermittent Initial Severity: Moderate Current Severity: Severe Character: Reports Dyspnea at rest Aggravating: Reports Movement Alleviating: Reports Bronchodilators Associated Signs and Symptoms: Reports Cough and Wheezing; Denies Chest pain with cough, Chest pain, Fever, Chills, Diaphoresis, Nasal congestion, Dizziness, Calf pain, Calf swelling, Edema, Rapid breathing, Labored breathing and Decreased intake Related History: Reports Similar episode Pulmonary Embolism Risk Factors: Reports None Cardiac Risk Factors: Reports None Tuberculosis Risk Factors: Reports None Recent Stress Test: No Recent Echo/LV Function: No Respiratory Distress: Mild Stridor Present: Yes Tracheal Deviation: No Subcutaneous Emphysema: No Accessory Muscle Use: No Retractions: Not Present Diminished Breath Sounds: Yes Unable to Speak Full Sentences: No Fatigue: Yes Leg Swelling: No Danae's Sign Present: No Grunting Respirations: No Kussmaul Respirations: No Differential Diagnoses: COPD Exacerbation, Pneumonia, Bronchiolitis, RSV and Bronchospasm Review of Systems <DO Alireza STERLING Last Filed: 09/19/19 13:57> Review Of Systems Constitutional: Reports No symptoms Eyes: Reports No symptoms Ears, Nose, Mouth, Throat: Reports No symptoms Respiratory: Reports Cough, Short of air and Wheezing Cardiac: Reports No symptoms GI: Reports No symptoms : Reports No symptoms Musculoskeletal: Reports No symptoms Skin: Reports No symptoms Neurological: Reports No symptoms Endocrine: Reports No symptoms Hematologic/Lymphatic: Reports No symptoms All Other Systems: Reviewed and Negative [facility] <BJORN HYDE, - Last Filed: 09/19/19 13:57> Medical History (Updated 09/19/19 @ 11:34 by TEMO AGUILAR) Acute exacerbation of chronic obstructive pulmonary disease (Acute) Anxiety Chronic obstructive pulmonary disease (Chronic) Depression with anxiety (Chronic) Influenza due to Influenza A virus (Acute) Family History (Updated 09/19/19 @ 10:44 by TEMO AGUILAR) Mother Cerebrovascular accident, Onset Age: 58 CHF (congestive heart failure), Onset Age: 53 Father No problems noted. BROTHER Rheumatoid arthritis SISTER No problems noted. BROTHER Alcoholism Social History (Updated 09/19/19 @ 10:56 by TEMO AGUILAR) Smoking and tobacco status: Current every day smoker Tobacco: How many years used: 30 Passive smoking exposure: Yes (Family smokes in her garage and she walks through it at times.) Who is smoking: sibling Alcohol intake: never Details: Smoked 2 PPD X 30 yrs. ; about 1/2 PPD for 7 mos. 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 Pets and animals: Yes (2 dogs--Huskie & Rottwillier live outside. ) History of recent travel: No Sexually active: No Do you think of yourself as: straight/heterosexual Current gender identity: female Seatbelt use: always Helmet use: No Drives intoxicated or rides with intoxicated mobile lounge driver or operator: No Water heater temperature set < 120 degrees: Yes Working smoke detector in home: Yes Fire extinguisher in home: Yes Carbon monoxide detector in home: No Firearms in home: Yes Female Reproductive History Menstrual Hx Hysterectomy: Yes (2017) Hx Tubal Ligation: No Physical Exam <BJORN HYDE DO - Last Filed: 09/19/19 13:57> Physical Exam Appearance: Ill-appearing and Well-nourished Ill-appearing: Mild Pain Distress: None Eyes: DENISHA, EOMI and Conjunctiva clear ENT: Ears normal, Nose normal and Oropharynx normal Neck: Supple Respiratory: Airway patent, Breath sounds diminished, Rhonchi and Wheezes Cardiovascular: RRR, Pulses normal, No rub and No murmur GI/: Soft, Nontender, No masses, Bowel sounds normal and No Organomegaly Musculoskeletal: Normal strength, ROM intact, No edema and No calf tenderness Skin: Warm, Dry and Normal color Neurological: Sensation intact, Motor intact, Reflexes intact, Cranial nerves intact, Alert and Oriented Psychiatric: Affect appropriate and Mood appropriate <ODILON CHADWICK MD - Last Filed: 09/18/19 21:05> Radiology Interpretation Radiology Interpretation By: Radiologist Radiology Results: Negative Exam Interpreted: Portable CXR <ODILON CHADWICK MD - Last Filed: 09/18/19 21:05> Re-Evaluation Time of Re-Evaluation: 20:51 Status: Improved Vital Signs Stable: Yes Appearance: NAD Lungs: Other (wheezing improved ) Skin: Warm and Dry Neuro: Alert and Oriented X3 CV: RRR Physician Notification <BJORN HYDE DO - Last Filed: 09/19/19 13:57> Case Discussed Physician Notified: Dr Chadwick/accepted transfer of care Time of Notification: 19:10 <ODILON CHADWICK MD - Last Filed: 09/18/19 21:05> Case Discussed Physician Notified: Tahir Aguilar Time of Notification: 20:40 <ODILON CHADWICK MD - Last Filed: 09/18/19 21:05> Critical Care Note Total Time (mins): 55 Course <BJORN HYDE DO - Last Filed: 09/19/19 13:57> Course Hematology/Chemistry: 09/19/19 04:40 09/19/19 04:40 Orders, Labs, Meds: Lab Review 09/18/19 09/18/19 09/18/19 07:50 18:55 19:00 WBC 6.95 RBC 4.71 Hgb 15.1 Hct 44.7 MCV 94.9 MCH 32.1 H MCHC 33.8 RDW Coeff of Luis Manuel 13.1 Plt Count 266 Immature Gran % (Auto) 0.3 Neut % (Auto) 73.6 Lymph % (Auto) 20.3 [place] % (Auto) 5.5 Eos % (Auto) 0.0 Baso % (Auto) 0.3 Immature Gran # (Auto) 0.0 Neut # (Auto) 5.1 Lymph # (Auto) 1.4 [place] # (Auto) 0.4 Eos # (Auto) 0.0 Baso # (Auto) 0.0 D-Dimer (Manual) Puncture Site O2 Saturation ABG pH ABG pCO2 ABG pO2 ABG HCO3 ABG Total CO2 ABG Base Excess Cisco Test FiO2 % Sodium Potassium Chloride Carbon Dioxide Anion Gap BUN Creatinine Estimated GFR (MDRD) BUN/Creatinine Ratio Glucose Calcium Total Bilirubin AST ALT Alkaline Phosphatase Troponin I Total Protein Albumin Globulin Albumin/Globulin Ratio Procalcitonin Influ A Molecular Assay Negative by naat Influ B Molecular Assay Negative by naat RSV Antigen Negative by naat 09/18/19 09/18/19 09/18/19 19:00 19:00 19:00 WBC RBC Hgb Hct MCV MCH MCHC RDW Coeff of Luis Manuel Plt Count Immature Gran % (Auto) Neut % (Auto) Lymph % (Auto) [place] % (Auto) Eos % (Auto) Baso % (Auto) Immature Gran # (Auto) Neut # (Auto) Lymph # (Auto) [place] # (Auto) Eos # (Auto) Baso # (Auto) D-Dimer (Manual) 380.79 Puncture Site O2 Saturation ABG pH ABG pCO2 ABG pO2 ABG HCO3 ABG Total CO2 ABG Base Excess Cisco Test FiO2 % Sodium 140.7 Potassium 4.30 Chloride 105.9 Carbon Dioxide 27.8 Anion Gap 11.30 BUN 13.6 Creatinine 0.67 Estimated GFR (MDRD) 92.00 BUN/Creatinine Ratio 20.29 Glucose 96.4 Calcium 9.91 Total Bilirubin 0.46 AST 28.2 ALT 16.3 Alkaline Phosphatase 119.4 Troponin I < 0.012 Total Protein 8.03 Albumin 4.36 Globulin 3.67 Albumin/Globulin Ratio 1.18 Procalcitonin < 0.05 Influ A Molecular Assay Influ B Molecular Assay RSV Antigen 09/18/19 19:37 WBC RBC Hgb Hct MCV MCH MCHC RDW Coeff of Luis Manuel Plt Count Immature Gran % (Auto) Neut % (Auto) Lymph % (Auto) [place] % (Auto) Eos % (Auto) Baso % (Auto) Immature Gran # (Auto) Neut # (Auto) Lymph # (Auto) [place] # (Auto) Eos # (Auto) Baso # (Auto) D-Dimer (Manual) Puncture Site Lb O2 Saturation 95.0 ABG pH 7.465 H ABG pCO2 32.7 L ABG pO2 69.0 L ABG HCO3 23.5 ABG Total CO2 25 ABG Base Excess 0 Cisco Test + FiO2 % 21.0 Sodium Potassium Chloride Carbon Dioxide Anion Gap BUN Creatinine Estimated GFR (MDRD) BUN/Creatinine Ratio Glucose Calcium Total Bilirubin AST ALT Alkaline Phosphatase Troponin I Total Protein Albumin Globulin Albumin/Globulin Ratio Procalcitonin Influ A Molecular Assay Influ B Molecular Assay RSV Antigen Orders Category Date Time Status ABG DRAW REQUEST Stat CARDIO 09/18/19 19:38 Completed EKG-(ED ONLY) Stat CARDIO 09/18/19 18:46 Completed NEBULIZER TREATMENT Routine CARDIO 09/18/19 20:58 Active NEBULIZER TREATMENT Stat CARDIO 09/18/19 18:56 Completed NEBULIZER TREATMENT Stat CARDIO 09/18/19 19:39 Completed OXYGEN Routine CARDIO 09/18/19 18:46 Completed OXYGEN Routine CARDIO 09/18/19 20:56 Active INTAKE & OUTPUT Q8HR CARE 09/18/19 20:56 Completed VITAL SIGNS Q4HR CARE 09/18/19 20:57 Completed REGULAR DIET DIETARY 09/18/19 Breakfast Ordered ABG Stat LAB 09/18/19 19:37 Completed BASIC METABOLIC PANEL DAILY@0600 LAB 09/19/19 04:40 Completed BASIC METABOLIC PANEL DAILY@0600 LAB 09/20/19 06:00 Ordered BLOOD CULTURE Stat LAB 09/18/19 19:20 Received CBC W/ AUTO DIFF DAILY@0600 LAB 09/19/19 04:40 Completed CBC W/ AUTO DIFF DAILY@0600 LAB 09/20/19 06:00 Ordered CBC W/ AUTO DIFF Stat LAB 09/18/19 19:00 Completed CMP [COMPREHENSIVE METABOLIC PANEL] Stat LAB 09/18/19 19:00 Completed D-DIMER Stat LAB 09/18/19 19:00 Completed FLU A & B MOLECULAR [FLU A/B MOLECULAR] Stat LAB 09/18/19 18:55 Completed PROCALCITONIN Stat LAB 09/18/19 19:00 Completed RAPID STREP SCREEN [MOLECULAR GROUP A STREP] Stat LAB 09/18/19 18:55 Completed RSV Stat LAB 09/18/19 07:50 Completed SPUTUM CULTURE Stat LAB 09/18/19 18:56 Uncollected TROPONIN I Stat LAB 09/18/19 19:00 Completed UA [URINALYSIS C & S IF INDICATED] Stat LAB 09/18/19 18:48 Uncollected Acetaminophen [Tylenol] MEDS 09/18/19 20:56 Active 650 mg PO Q4H PRN Ceftriaxone/D5w 1 gm Premix [Rocephin 1 gm/50 ml D5w] MEDS 09/18/19 20:48 Discontinued 1 gm in 50 ml IV ONCE Enoxaparin Sodium [Lovenox] MEDS 09/19/19 09:00 Active 40 mg SUBCUT DAILY Ipratropium/Albuterol Neb [Duoneb] MEDS 09/18/19 18:55 Discontinued 3 ml NEB ONCE STA Ipratropium/Albuterol Neb [Duoneb] MEDS 09/18/19 22:00 Active 3 ml NEB RTQ4H Levalbuterol HCl [Xopenex 1.25 mg] MEDS 09/18/19 19:38 Discontinued 1.25 mg NEB ONCE STA Methylprednisolone Sod Succ/Pf [Solu-Medrol 125 mg] MEDS 09/18/19 19:00 Active 125 mg IVP Q8HR Methylprednisolone Sod Succ/Pf [Solu-Medrol 125 mg] MEDS 09/18/19 21:00 Di scontinued 125 mg IVP Q8HR Morphine Sulfate [Morphine 2 mg/ml Syringe] MEDS 09/18/19 20:56 Active 2 mg IVP Q4H PRN Ondansetron HCl/Pf [Zofran 4 mg/2 ml] MEDS 09/18/19 20:56 Active 4 mg IVP Q6H PRN Sodium Chloride 0.9% [Sodium Chloride] 1,000 ml MEDS 09/18/19 18:59 Disconti nued IV BOLUS RESUSCITATION STATUS Routine OTHERS 09/18/19 20:56 Ordered CHEST, 1V AP ONLY Stat RADS 09/18/19 18:46 Completed Medications Generic Name Dose Route Start Last Admin Trade Name Freq PRN Reason Stop Dose Admin Acetaminophen 650 mg 09/18/19 20:56 Tylenol PO Q4H PRN Analgesia Albuterol/Ipratropium 3 ml 09/18/19 22:00 09/19/19 10:09 Duoneb NEB 3 ml RTQ4H IFEANYI Administration Budesonide/Formoterol Fumarate 2 puff 09/19/19 09:00 09/19/19 09:16 Symbicort 160-4.5 Mcg Inhaler IH 2 puff BID IFEANYI Administration Enoxaparin Sodium 40 mg 09/19/19 09:00 09/19/19 09:17 Lovenox SUBCUT 40 mg DAILY IFEANYI Administration Ergocalciferol 50,000 unit 09/19/19 12:00 Drisdol PO Fr@0900 IFEANYI CEFTRIAXONE/D5W 1 GM PREMIX 1 gm in 50 mls @ 75 mls/hr 09/19/19 21:00 Rocephin 1 Gm/50 Ml D5w IV 09/22/19 20:59 BEDTIME IFEANYI Sodium Chloride 1,000 mls @ 125 mls/hr 09/18/19 23:00 09/19/19 06:33 Sodium Chloride IV 125 mls/hr .Q8H IFEANYI Administration Ibuprofen 600 mg 09/18/19 22:00 09/19/19 06:16 Motrin PO 600 mg QID PRN Administration mild pain Methylprednisolone Sodium Succinate 125 mg 09/18/19 19:00 09/19/19 06:17 Solu-Medrol 125 Mg IVP 125 mg Q8HR IFEANYI Administration Morphine Sulfate 2 mg 09/18/19 20:56 09/18/19 22:01 Morphine 2 Mg/Ml Syringe IVP 2 mg Q4H PRN Administration Severe Pain Non-Formulary Medication 2 mg 09/19/19 09:00 09/19/19 09:16 Alprazolam [Xanax Xr] PO 2 mg BID IFEANYI Administration Non-Formulary Medication 1 mg 09/19/19 08:15 Alprazolam [Xanax] PO BID PRN Anxiety Ondansetron HCl 4 mg 09/18/19 20:56 09/19/19 07:06 Zofran 4 Mg/2 Ml IVP 4 mg Q6H PRN Administration Nausea / Vomiting Discontinued Medications Generic Name Dose Route Start Last Admin Trade Name Freq PRN Reason Stop Dose Admin Albuterol/Ipratropium 3 ml 09/18/19 18:55 09/18/19 19:20 Duoneb NEB 09/18/19 18:56 3 ml ONCE STA Administration Sodium Chloride 1,000 mls @ 1,000 mls/hr 09/18/19 18:59 09/18/19 19:02 Sodium Chloride IV 09/18/19 19:58 1,000 mls/hr BOLUS STA Administration CEFTRIAXONE/D5W 1 GM PREMIX 1 gm in 50 mls @ 75 mls/hr 09/18/19 20:48 09/18/19 20:54 Rocephin 1 Gm/50 Ml D5w IV 09/18/19 21:27 75 mls/hr ONCE STA Administration Levalbuterol HCl 1.25 mg 09/18/19 19:38 09/18/19 19:52 Xopenex 1.25 Mg NEB 09/18/19 19:39 1.25 mg ONCE STA Administration Methylprednisolone Sodium Succinate 125 mg 09/18/19 21:00 09/19/19 01:47 Solu-Medrol 125 Mg IVP Not Given Q8HR [facility] Morphine Sulfate 2 mg 09/18/19 21:13 09/18/19 21:56 Morphine 2 Mg/Ml Syringe IVP 09/18/19 21:14 2 mg ONCE STA Administration Non-Formulary Medication 20 mg 09/19/19 09:00 Dextroamphetamine-Amphetamine [Adderall] PO BID [facility] Ondansetron HCl 4 mg 09/18/19 21:13 09/19/19 01:44 Zofran 4 Mg/2 Ml IVP 09/18/19 21:14 Not Given ONCE STA Vital Signs: Temp Pulse Resp BP Pulse Ox 09/18/19 20:10 103.1 F H 09/18/19 18:32 98.7 F 128 H 26 H 120/80 97 <ODILON CHADWICK MD - Last Filed: 09/18/19 21:05> Course Orders, Labs, Meds: Lab Review 09/18/19 09/18/19 09/18/19 07:50 18:55 19:00 WBC 6.95 RBC 4.71 Hgb 15.1 Hct 44.7 MCV 94.9 MCH 32.1 H MCHC 33.8 RDW Coeff of Luis Manuel 13.1 Plt Count 266 Immature Gran % (Auto) 0.3 Neut % (Auto) 73.6 Lymph % (Auto) 20.3 [place] % (Auto) 5.5 Eos % (Auto) 0.0 Baso % (Auto) 0.3 Immature Gran # (Auto) 0.0 Neut # (Auto) 5.1 Lymph # (Auto) 1.4 [place] # (Auto) 0.4 Eos # (Auto) 0.0 Baso # (Auto) 0.0 D-Dimer (Manual) Puncture Site O2 Saturation ABG pH ABG pCO2 ABG pO2 ABG HCO3 ABG Total CO2 ABG Base Excess Cisco Test FiO2 % Sodium Potassium Chloride Carbon Dioxide Anion Gap BUN Creatinine Estimated GFR (MDRD) BUN/Creatinine Ratio Glucose Calcium Total Bilirubin AST ALT Alkaline Phosphatase Troponin I Total Protein Albumin Globulin Albumin/Globulin Ratio Procalcitonin Influ A Molecular Assay Negative by naat Influ B Molecular Assay Negative by naat RSV Antigen Negative by naat 09/18/19 09/18/19 09/18/19 19:00 19:00 19:00 WBC RBC Hgb Hct MCV MCH MCHC RDW Coeff of Luis Manuel Plt Count Immature Gran % (Auto) Neut % (Auto) Lymph % (Auto) [place] % (Auto) Eos % (Auto) Baso % (Auto) Immature Gran # (Auto) Neut # (Auto) Lymph # (Auto) [place] # (Auto) Eos # (Auto) Baso # (Auto) D-Dimer (Manual) 380.79 Puncture Site O2 Saturation ABG pH ABG pCO2 ABG pO2 ABG HCO3 ABG Total CO2 ABG Base Excess Cisco Test FiO2 % Sodium 140.7 Potassium 4.30 Chloride 105.9 Carbon Dioxide 27.8 Anion Gap 11.30 BUN 13.6 Creatinine 0.67 Estimated GFR (MDRD) 92.00 BUN/Creatinine Ratio 20.29 Glucose 96.4 Calcium 9.91 Total Bilirubin 0.46 AST 28.2 ALT 16.3 Alkaline Phosphatase 119.4 Troponin I < 0.012 Total Protein 8.03 Albumin 4.36 Globulin 3.67 Albumin/Globulin Ratio 1.18 Procalcitonin < 0.05 Influ A Molecular Assay Influ B Molecular Assay RSV Antigen 09/18/19 19:37 WBC RBC Hgb Hct MCV MCH MCHC RDW Coeff of Luis Manuel Plt Count Immature Gran % (Auto) Neut % (Auto) Lymph % (Auto) [place] % (Auto) Eos % (Auto) Baso % (Auto) Immature Gran # (Auto) Neut # (Auto) Lymph # (Auto) [place] # (Auto) Eos # (Auto) Baso # (Auto) D-Dimer (Manual) Puncture Site Lb O2 Saturation 95.0 ABG pH 7.465 H ABG pCO2 32.7 L ABG pO2 69.0 L ABG HCO3 23.5 ABG Total CO2 25 ABG Base Excess 0 Cisco Test + FiO2 % 21.0 Sodium Potassium Chloride Carbon Dioxide Anion Gap BUN Creatinine Estimated GFR (MDRD) BUN/Creatinine Ratio Glucose Calcium Total Bilirubin AST ALT Alkaline Phosphatase Troponin I Total Protein Albumin Globulin Albumin/Globulin Ratio Procalcitonin Influ A Molecular Assay Influ B Molecular Assay RSV Antigen Orders Category Date Time Status ABG DRAW REQUEST Stat CARDIO 09/18/19 19:38 Completed EKG-(ED ONLY) Stat CARDIO 09/18/19 18:46 Completed NEBULIZER TREATMENT Routine CARDIO 09/18/19 20:58 Active NEBULIZER TREATMENT Stat CARDIO 09/18/19 18:56 Completed NEBULIZER TREATMENT Stat CARDIO 09/18/19 19:39 Completed OXYGEN Routine CARDIO 09/18/19 18:46 Completed OXYGEN Routine CARDIO 09/18/19 20:56 Active INTAKE & OUTPUT Q8HR CARE 09/18/19 20:56 Completed VITAL SIGNS Q4HR CARE 09/18/19 20:57 Completed REGULAR DIET DIETARY 09/18/19 Breakfast Ordered ABG Stat LAB 09/18/19 19:37 Completed BASIC METABOLIC PANEL DAILY@0600 LAB 09/19/19 04:40 Completed BASIC METABOLIC PANEL DAILY@0600 LAB 09/20/19 06:00 Ordered BLOOD CULTURE Stat LAB 09/18/19 19:20 Received CBC W/ AUTO DIFF DAILY@0600 LAB 09/19/19 04:40 Completed CBC W/ AUTO DIFF DAILY@0600 LAB 09/20/19 06:00 Ordered CBC W/ AUTO DIFF Stat LAB 09/18/19 19:00 Completed CMP [COMPREHENSIVE METABOLIC PANEL] Stat LAB 09/18/19 19:00 Completed D-DIMER Stat LAB 09/18/19 19:00 Completed FLU A & B MOLECULAR [FLU A/B MOLECULAR] Stat LAB 09/18/19 18:55 Completed PROCALCITONIN Stat LAB 09/18/19 19:00 Completed RAPID STREP SCREEN [MOLECULAR GROUP A STREP] Stat LAB 09/18/19 18:55 Completed RSV Stat LAB 09/18/19 07:50 Completed SPUTUM CULTURE Stat LAB 09/18/19 18:56 Uncollected TROPONIN I Stat LAB 09/18/19 19:00 Completed UA [URINALYSIS C & S IF INDICATED] Stat LAB 09/18/19 18:48 Uncollected Acetaminophen [Tylenol] MEDS 09/18/19 20:56 Active 650 mg PO Q4H PRN Ceftriaxone/D5w 1 gm Premix [Rocephin 1 gm/50 ml D5w] MEDS 09/18/19 20:48 Discontinued 1 gm in 50 ml IV ONCE Enoxaparin Sodium [Lovenox] MEDS 09/19/19 09:00 Active 40 mg SUBCUT DAILY Ipratropium/Albuterol Neb [Duoneb] MEDS 09/18/19 18:55 Discontinued 3 ml NEB ONCE STA Ipratropium/Albuterol Neb [Duoneb] MEDS 09/18/19 22:00 Active 3 ml NEB RTQ4H Levalbuterol HCl [Xopenex 1.25 mg] MEDS 09/18/19 19:38 Discontinued 1.25 mg NEB ONCE STA Methylprednisolone Sod Succ/Pf [Solu-Medrol 125 mg] MEDS 09/18/19 19:00 Active 125 mg IVP Q8HR Methylprednisolone Sod Succ/Pf [Solu-Medrol 125 mg] MEDS 09/18/19 21:00 Discontinued 125 mg IVP Q8HR Morphine Sulfate [Morphine 2 mg/ml Syringe] MEDS 09/18/19 20:56 Active 2 mg IVP Q4H PRN Ondansetron HCl/Pf [Zofran 4 mg/2 ml] MEDS 09/18/19 20:56 Active 4 mg IVP Q6H PRN Sodium Chloride 0.9% [Sodium Chloride] 1,000 ml MEDS 09/18/19 18:59 Discontinued IV BOLUS RESUSCITATION STATUS Routine OTHERS 09/18/19 20:56 Ordered CHEST, 1V AP ONLY Stat RADS 09/18/19 18:46 Completed Medications Generic Name Dose Route Start Last Admin Trade Name Freq PRN Reason Stop Dose Admin Acetaminophen 650 mg 09/18/19 20:56 Tylenol PO Q4H PRN Analgesia Albuterol/Ipratropium 3 ml 09/18/19 22:00 09/19/19 10:09 Duoneb NEB 3 ml RTQ4H IFEANYI Administration Budesonide/Formoterol Fumarate 2 puff 09/19/19 09:00 09/19/19 09:16 Symbicort 160-4.5 Mcg Inhaler IH 2 puff BID IFEANYI Administration Enoxaparin Sodium 40 mg 09/19/19 09:00 09/19/19 09:17 Lovenox SUBCUT 40 mg DAILY IFEANYI Administration Ergocalciferol 50,000 unit 09/19/19 12:00 Drisdol PO Fr@0900 IFEANYI CEFTRIAXONE/D5W 1 GM PREMIX 1 gm in 50 mls @ 75 mls/hr 09/19/19 21:00 Rocephin 1 Gm/50 Ml D5w IV 09/22/19 20:59 BEDTIME IFEANYI Sodium Chloride 1,000 mls @ 125 mls/hr 09/18/19 23:00 09/19/19 06:33 Sodium Chloride IV 125 mls/hr .Q8H IFEANYI Administration Ibuprofen 600 mg 09/18/19 22:00 09/19/19 06:16 Motrin PO 600 mg QID PRN Administration mild pain Methylprednisolone Sodium Succinate 125 mg 09/18/19 19:00 09/19/19 06:17 Solu-Medrol 125 Mg IVP 125 mg Q8HR IFEANYI Administration Morphine Sulfate 2 mg 09/18/19 20:56 09/18/19 22:01 Morphine 2 Mg/Ml Syringe IVP 2 mg Q4H PRN Administration Severe Pain Non-Formulary Medication 2 mg 09/19/19 09:00 09/19/19 09:16 Alprazolam [Xanax Xr] PO 2 mg BID IFEANYI Administration Non-Formulary Medication 1 mg 09/19/19 08:15 Alprazolam [Xanax] PO BID PRN Anxiety Ondansetron HCl 4 mg 09/18/19 20:56 09/19/19 07:06 Zofran 4 Mg/2 Ml IVP 4 mg Q6H PRN Administration Nausea / Vomiting Discontinued Medications Generic Name Dose Route Start Last Admin Trade Name Freq PRN Reason Stop Dose Admin Albuterol/Ipratropium 3 ml 09/18/19 18:55 09/18/19 19:20 Duoneb NEB 09/18/19 18:56 3 ml ONCE STA Administration Sodium Chloride 1,000 mls @ 1,000 mls/hr 09/18/19 18:59 09/18/19 19:02 Sodium Chloride IV 09/18/19 19:58 1,000 mls/hr BOLUS STA Administration CEFTRIAXONE/D5W 1 GM PREMIX 1 gm in 50 mls @ 75 mls/hr 09/18/19 20:48 09/18/19 20:54 Rocephin 1 Gm/50 Ml D5w IV 09/18/19 21:27 75 mls/hr ONCE STA Administration Levalbuterol HCl 1.25 mg 09/18/19 19:38 09/18/19 19:52 Xopenex 1.25 Mg NEB 09/18/19 19:39 1.25 mg ONCE STA Administration Methylprednisolone Sodium Succinate 125 mg 09/18/19 21:00 09/19/19 01:47 Solu-Medrol 125 Mg IVP Not Given Q8HR IFEANYI Morphine Sulfate 2 mg 09/18/19 21:13 09/18/19 21:56 Morphine 2 Mg/Ml Syringe IVP 09/18/19 21:14 2 mg ONCE STA Administration Non-Formulary Medication 20 mg 09/19/19 09:00 Dextroamphetamine-Amphetamine [Adderall] PO BID IFEANYI Ondansetron HCl 4 mg 09/18/19 21:13 09/19/19 01:44 Zofran 4 Mg/2 Ml IVP 09/18/19 21:14 Not Given ONCE STA Vital Signs: Temp Pulse Resp BP Pulse Ox 09/18/19 20:10 103.1 F H 09/18/19 18:32 98.7 F 128 H 26 H 120/80 97 Discharge Plan Discharge Patient Disposition: ADMITTED INPATIENT Discharge Problem: Acute exacerbation of chronic obstructive pulmonary disease ED Provider: BJORN HYDE Condition: Fair Discharge Date/Time: 09/18/19 22:07
[2019-09-18] MEDS ORDERED: XOPENEX 1.25 MG NEB STA (19:38)
--- NOTE | 2019-09-18 19:57 | DI ---
EXAM: Single frontal view of the chest HISTORY: Shortness of breath. COMPARISON: None FINDINGS: Cardiomediastinal silhouette is unremarkable. There is no pneumothorax or effusion. There is no consolidation, nodule or mass. The osseous structures are unremarkable. IMPRESSION: No acute cardiopulmonary process
[2019-09-18] MEDS ORDERED: ROCEPHIN 1 GM/50 ML D5W 1 GM/50 ML BAG IV STA (20:48)
[2019-09-18] MEDS ORDERED: TYLENOL PO PRN (20:56)
[2019-09-18] MEDS ORDERED: MORPHINE 2 MG/ML SYRINGE IVP PRN (20:56)
[2019-09-18] MEDS ORDERED: SODIUM CHLORIDE 0.9%-KCL 20 MEQ 1,000 ML IV SCH (21:00)
[2019-09-18] MEDS ORDERED: SOLU-MEDROL 125 MG IVP SCH (21:00)
[2019-09-18] MEDS ORDERED: MORPHINE 2 MG/ML SYRINGE IVP STA (21:13)
[2019-09-18] MEDS ORDERED: ZOFRAN 4 MG/2 ML IVP STA (21:13)
[2019-09-18] MEDS: DUONEB NEB SCH (22:48)
[2019-09-18] MEDS: SODIUM CHLORIDE 1,000 ML IV SCH (23:12)
[2019-09-19] MEDS: ZOFRAN 4 MG/2 ML IVP PRN ×2 (00:01→07:06)
[2019-09-19] MEDS ORDERED: CHOLECALCIFEROL PO SCH (00:15)
[2019-09-19] MEDS: DUONEB NEB SCH ×6 (01:08→21:35)
[2019-09-19 05:29] LABS: HEMATOCRIT 41.4 % (37.0-47.0)
[2019-09-19] MEDS: MOTRIN PO PRN ×3 (06:16→20:02)
[2019-09-19] MEDS: SOLU-MEDROL 125 MG IVP SCH ×3 (06:17→20:02)
[2019-09-19] MEDS: SODIUM CHLORIDE 1,000 ML IV SCH ×3 (06:33→23:57)
[2019-09-19] MEDS ORDERED: XANAX PO SCH (09:00)
[2019-09-19] MEDS ORDERED: NON-FORMULARY MEDICATION (Dextroamphetamine-Amphetamine [Adderall] 20 MG) PO SCH (09:00)
[2019-09-19] MEDS: SYMBICORT 160-4.5 MCG INHALER IH SCH ×2 (09:16→20:02)
[2019-09-19] MEDS: ADDERALL PO SCH ×2 (09:16→13:00)
[2019-09-19] MEDS: ALPRAZOLAM 2 MG PO SCH ×2 (09:16→23:57)
[2019-09-19] MEDS: LOVENOX SUBCUT SCH (09:17)
--- NOTE | 2019-09-19 10:40 | DI ---
EXAM: Chest two views HISTORY: Chronic obstructive pulmonary disease FINDINGS: Compared to 09/18/2019. Heart size and mediastinal contour remain within normal limits. There is diffuse, chronic appearing interstitial accentuation. Mild hyperinflation. No acute infilt rates are seen. No vascular congestion. There is no consolidation, visible pleural fluid or pneumot horax. Bones reveal no acute fracture. IMPRESSION: Findings which can be consistent with the patient's history of chronic obstructive pulm onary disease. No acute cardiopulmonary process.
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
[2019-09-19] MEDS ORDERED: DRISDOL PO SCH ×2 (12:00→15:00)
[2019-09-19] MEDS ORDERED: DIFLUCAN PO STA (18:20)
[2019-09-19] MEDS ORDERED: ROCEPHIN 1 GM/50 ML D5W 1 GM/50 ML BAG IV SCH (21:00)
[2019-09-20] MEDS: DUONEB NEB SCH ×3 (02:20→09:35)
[2019-09-20] MEDS: SOLU-MEDROL 125 MG IVP SCH (04:54)
[2019-09-20 06:22] LABS: HEMATOCRIT 37.7 % (37.0-47.0)
[2019-09-20] MEDS: SODIUM CHLORIDE 1,000 ML IV SCH (08:06)
[2019-09-20] MEDS: ALPRAZOLAM 2 MG PO SCH (08:07)
[2019-09-20] MEDS: ADDERALL PO SCH (08:07)
[2019-09-20] MEDS: LOVENOX SUBCUT SCH (08:08)
[2019-09-20] MEDS: SYMBICORT 160-4.5 MCG INHALER IH SCH (08:29)
[2019-09-20] MEDS ORDERED: SENNA PO PRN (09:12)
[2019-09-20] MEDS ORDERED: COLACE PO SCH (09:30)
[2019-09-20] MEDS: ZOFRAN 4 MG/2 ML IVP PRN (10:05)
--- NOTE | 2019-09-20 10:08 | PCM.PROG ---
Date Seen by Provider: 09/20/19 Time Seen by Provider: 09:35 Subjective: Patient sitting at side of bed taking DuoNeb tx and tolerating well. Says she is breathing better since admission; less SOB and NOWAK. Feeling so tired "no energy." Generalized ESPINOZA w/ Ibuprofen 800mg PO every 8 hrs prn; rated 4/10 now and 10/10 at worst. States her throat is sore and burning since all the steriods and antibiotics; "get thrush w/ ATB's." Notes feeling a little shaky from the steroids & DuoNebs, but agrees to cont tx for medical needs. Her left calf N/T and pain has started again --- states "I always have problem w/ N/T and pain in that left leg." Was up and down all night; didn't sleep well. Notes she is still feeling nauseated all the time, but eating w/o vomiting. Continues to feel anxious and teary at times w/ self-anger over past smoking and now severe COPD. 09:55 AM patient was sitting at bedside and turned to her left slightly w/ sudden doubling over d/t sharp stabbing pain RLL area that lasted <30seconds. At that time there w/ increased anxiety, tachycardia, and SOB lasting approx. 5 minutes. Denies diaphoresis, cyanosis, or chest pain after episode. States, "she is afraid of dying--have 2 grandbabies I need to live for." Critical Care Note entered post this note. Current Active Problems (Updated 09/20/19 @ 11:42 by TEMO AGUILAR) Encounter for tobacco use cessation counseling (Acute) Tobacco abuse disorder (Chronic) Elevated d-dimer (Acute) Acute constipation (Acute) Acute exacerbation of chronic obstructive pulmonary disease (Acute) Depression with anxiety (Chronic) Chronic obstructive pulmonary disease (Chronic) Objective: Vitals: T=97.9 F, P=66, R=18, FE=683/68, ULF7=896; 10:20am s/p pain T 97.8 F, P=104, ZV=737/79, O2 Sat on 2L/NC =100% HEENT: Eyes-no redness, swelling or d/c. Ears: pinna w/o tenderness/pain. Hearing normal. Pharnyx: injected w/o lesions or PND. No dysphagia. Neck: Supple; NT; No lymphadenopathy Lungs: Breathe sounds increased from yesterday. Faint inspiratory/expiratory wheezes bilaterally w/ bibasilar crackles; no other adventious sounds noted. No retractions. Increased respiratory rate w/ anxiety episodes; otherwise regular and easy. O2 @ 2L/NC constant. O2 sat post neb tx 100%; usually in the mid 90's last 24 hrs. CVS: RRR; no murmurs or gallops. No JVD. PPP 2+/4+ and =. No edema Abdomen: Soft, mild generalized tenderness w/o rebound or guarding, no organomegaly or masses. VICENTE/SO present. Extremities: DELGADILLO well. No edema. Left calf has new findings of mild tenderness, mild erythema, and aching pain. Not limping w/ ambulation. Neurological: A/O X4. Up and about in room w/ O2 w/ normal gait. Speech clear. No other abnormalities noted. Skin: Dry & intact. No rashes or lesions noted. Lab/Tests/Diagnostic Imaging: Laboratory Results WBC 11.30 K/ul (4.6-10.2) H D 09/20/19 04:37 RBC 3.93 10^6/ul (4.20-5.40) L 09/20/19 04:37 Hgb 12.5 g/dl (12.0-16.0) 09/20/19 04:37 Hct 37.7 % (37.0-47.0) 09/20/19 04:37 MCV 95.9 fl (81.0-99.0) 09/20/19 04:37 MCH 31.8 pg (27.0-31.0) H 09/20/19 04:37 MCHC 33.2 (31.8-35.4) 09/20/19 04:37 RDW Coeff of Luis Manuel 13.4 % (11.6-14.8) 09/20/19 04:37 Plt Count 222 10^3/uL (140-440) 09/20/19 04:37 Immature Gran % (Auto) 0.6 % (0.0-5.0) 09/20/19 04:37 Neut % (Auto) 92.9 % (42.2-75.2) H 09/20/19 04:37 Lymph % (Auto) 5.2 (10.0-50.0) L 09/20/19 04:37 Harlan % (Auto) 1.2 (0-10) 09/20/19 04:37 Eos % (Auto) 0.0 % (0.0-7.0) 09/20/19 04:37 Baso % (Auto) 0.1 % (0.0-3.0) 09/20/19 04:37 Immature Gran # (Auto) 0.1 (0.0-1.0) 09/20/19 04:37 Neut # (Auto) 10.5 K/ul (2.0-6.9) H 09/20/19 04:37 Lymph # (Auto) 0.6 K/uL (0.60-3.4) 09/20/19 04:37 [place]lan # (Auto) 0.1 K/uL (0.4-2.0) L 09/20/19 04:37 Eos # (Auto) 0.0 K/ul (0.0-0.7) 09/20/19 04:37 Baso # (Auto) 0.0 K/uL (0-0.2) 09/20/19 04:37 Neutrophils % (Manual) 92.0 % (42.2-75.2) H 09/19/19 04:40 Lymphocytes % (Manual) 8.0 % (10.0-50.0) L 09/19/19 04:40 Anisocytosis Not present (NOT PRESENT) 09/19/19 04:40 D-Dimer (Manual) 380.79 ng/mL (<500) 09/18/19 19:00 Puncture Site Lb 09/18/19 19:37 O2 Saturation 95.0 % (95-100) 09/18/19 19:37 ABG pH 7.465 (7.35-7.45) H 09/18/19 19:37 ABG pCO2 32.7 mmHg (35-45) L 09/18/19 19:37 ABG pO2 69.0 mmHg (85-100) L 09/18/19 19:37 ABG HCO3 23.5 (22.0-26.0) 09/18/19 19:37 ABG Total CO2 25 (22.0-28.0) 09/18/19 19:37 ABG Base Excess 0 (-2.0-2.0) 09/18/19 19:37 Cisco Test + 09/18/19 19:37 FiO2 % 21.0 % 09/18/19 19:37 Sodium 142.1 mmol/L (134.5-145) 09/20/19 04:37 Potassium 3.91 mmol/L (3.5-5.1) 09/20/19 04:37 Chloride 112.2 mmol/L (98-107) H 09/20/19 04:37 Carbon Dioxide 23.9 mmol/L (22-30.0) 09/20/19 04:37 Anion Gap 9.91 09/20/19 04:37 BUN 9.4 mg/dL (7-17) 09/20/19 04:37 Creatinine 0.52 mg/dL (0.60-1.30) L 09/20/19 04:37 Estimated GFR (MDRD) 124.00 mL/min 09/20/19 04:37 BUN/Creatinine Ratio 18.07 09/20/19 04:37 Glucose 123.0 mg/dL (74-106) H 09/20/19 04:37 Calcium 8.83 mg/dL (8.4-10.2) 09/20/19 04:37 Total Bilirubin 0.46 mg/dL (0.2-1.3) 09/18/19 19:00 AST 28.2 U/L (14-36) 09/18/19 19:00 ALT 16.3 U/L (0-35) 09/18/19 19:00 Alkaline Phosphatase 119.4 U/L (38-126) 09/18/19 19:00 Troponin I < 0.012 ng/ml (0.0000-0.120) 09/18/19 19:00 Total Protein 8.03 g/dL (6.3-8.2) 09/18/19 19:00 Albumin 4.36 g/dL (3.5-5.0) 09/18/19 19:00 Globulin 3.67 09/18/19 19:00 Albumin/Globulin Ratio 1.18 09/18/19 19:00 Procalcitonin < 0.05 ng/mL (0.09) 09/18/19 19:00 Influ A Molecular Assay Negative by naat (NEGATIVE) 09/18/19 18:55 Influ B Molecular Assay Negative by naat (NEGATIVE) 09/18/19 18:55 RSV Antigen Negative by naat (NEGATIVE) 09/18/19 07:50 (1) Acute chest pain: Status: Acute Code(s): R07.9 - Chest pain, unspecified SNOMED Code(s): 354467294 (2) Elevated d-dimer: Status: Acute Code(s): R79.1 - Abnormal coagulation profile SNOMED Code(s): 769618914 (3) Acute pain of left lower extremity: Status: Acute Code(s): M79.605 - Pain in left leg SNOMED Code(s): 48324151 (4) Pain in left upper arm: Status: Acute Code(s): M79.622 - Pain in left upper arm SNOMED Code(s): 450379684294835 (5) Acute exacerbation of chronic obstructive pulmonary disease: Status: Acute Code(s): J44.1 - Chronic obstructive pulmonary disease with (acute) exacerbation SNOMED Code(s): 356651949 (6) Chronic obstructive pulmonary disease: Status: Chronic SNOMED Code(s): 24887193 (7) Tobacco abuse disorder: Status: Chronic Code(s): Z72.0 - Tobacco use SNOMED Code(s): 45373273 (8) Encounter for tobacco use cessation counseling: Status: Acute Code(s): Z71.6 - Tobacco abuse counseling SNOMED Code(s): 577890654 (9) Depression with anxiety: Status: Chronic Code(s): F41.8 - Other specified anxiety disorders SNOMED Code(s): 18584256 (10) Acute constipation: Status: Acute Code(s): K59.00 - Constipation, unspecified SNOMED Code(s): 795535420 Plan: * Acute Chest pain w/ Elevated 2nd draw D-Dimer 380.79 (09/19/2019 17:00) L --STAT EKG prior to transfer to [facility] as per consult w/ Dr. Jhon Yarbrough MD collaborating MD. No pain meds at present as pain resolve almost immediately. With elevated D-Dimer noted this AM, patient is needing VQ scan and doppler studies for new onset this AM of LLE calf pain,elevated temp change, and tenderness to palpation, and LUE w/ tenderness to palpation only. Has been on Lovenox 40mg subq daily X2. Will soon have EMS transfer. * Acute LLE pain w/ mild erythema, increased temp, and calf tenderness. --Needs Doppler study---unavailable here during weekend. * Acute L arm pain--new tenderness w/o erythema, temp change, or edema. Pulses good. 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 --No home O2. SoluMedrol 125mg decreased to 80mg Q 8 hrs this AM. Duonebs Q 4hrs scheduled have been helpful w/ O2 protocol. Has been on O2 @ 2L/NC last 2 days. * Tobacco Abuse w/ counseling---Agrees to quit. Refuses meds/patches. * Depression w/ Anxiety --Home meds cont'd; control is worsened w/ steroids and nebs per pt. Sleep disturbed after using meds here. Seen in [facility] routinely. \\ * Acute Constipation--no BM 4-5 days; given Colace 100mg PO this AM and Senna. NO BM's since here.
[2019-09-20] MEDS ORDERED: PRILOSEC PO SCH (10:15)
[2019-09-20] MEDS: MOTRIN PO PRN (10:27)
[2019-09-20 11:31] VITALS: BP 140/79; TEMP 97.8
[2019-09-20] MEDS ORDERED: SOLU-MEDROL 125 MG IVP SCH (13:00)
--- NOTE | 2019-09-20 15:49 | PCM.PROG ---
Critical Care Note: 75 minutes See 09/20/2019 Progress Notes. VS: Temp 97.8=P 104 & regular=BP 140/79=O2sat 100% on O2 at 2L/NC Patient had episode of sharp severe stabbing 10/10 pain in RLL area that occurred as she was normally sitting at her bedside and slowly turning to her left while talking. The pain caused her to bend forward and hold the area w/ associated yell, gasping and holding breath>>tachypneic breathing for 3-5 minutes. The actual stabbing pain only lasted for less than a minute she stated. She became even more anxious that when she was first examined on daily rounds. Started crying softly stating "I don't want to ; I have 2 grandbabies to live for." It has been noted that with her SoluMedrol 125mg IVP and Q4 DuoNebs that she was getting more anxious despite her Depression w/ Anxiety chronic meds Xanax and Adderall XR. AM exam had also noted new LUE tenderness w/ no chords or spasm in Left upper arm (no known injury), and Left calf mildly erythematous, w/tenderness to palpation, increased temp of area. Dr. Jhon Yarbrough MD, collaborating MD was called to discuss findings and need for US venous studies of LUE & LLE and VQ Scan for PE. Chart review earlier had revealed D-Dimer that was 32 on admission was >350 09/19/2019 late evening. Admission CXR reviewed as well as previous provider and ER notes. Patient is currently here for exacerbation of COPD w/ significant hx for Depression w/ Anxiety. RADIO JOURNALIST reviewed patient assessment (see MD progress note 09/20/2019), and alerted him that no one is here at hospital for needed tests till next week. The anxiety that patient has may be due to her chronic MH, but could also be a sign of PE. She has been on Lovenox 40mg PO daily, but may be in need of other anti-coagulants at this time. Her COPD is advancing and she definitely high risk patient and not candidate to wait for testing w/ this facility options. Dr. Yarbrough agrees w/ transfer to higher level of care and instructed RADIO JOURNALIST to call Transfer Nurse @ [facility] and speak w/ ER MD for transfer acceptance. At approximately 111:10am RADIO JOURNALIST called and spoke with Marcia, transfer nurse, [facility] who took patient name and was given further information per Celina, RN, with hospital protocol for RADIO JOURNALIST to speak with Hospitalist OC to see if patient would be accepted. About 10minutes later, Dr. Louie Manriquez, [facility] OC, contacted RADIO JOURNALIST via phone and was given a full report and questions answered as he asked me. It was decided because the patient, needed services that [facility] could not provide on the weekend that [facility] would accept the patient transfer under Dr. Tahir Manriquez's care. Coordinated provider work as needed w/ patient nurse, RODY Patrick. Transfer papers completed as required. EKG ordered prior to transfer w / Dr. Nereida Casarez on unit and asked to read EKG prior to patient transfer. Ekg was NSR w/o abnormalities as reviewed by RADIO JOURNALIST and agreed by Dr. Casarez, farm operations manager. EKG shared w/ EMS and sent w/ hospital records in envelope as prepared. RADIO JOURNALIST spoke w/ patient and her brother, who was at patient bedside, explaining that she currently is stable (patient again re-examined) and explained unchanged from rounding assessment earlier. Explained to patient and family that due to new symptoms (her left upper arm tenderness, left calf pain/erythema/tenderness to palpation) w/ late evening repeat of elevated D-Dimer (which cold me she has a blood clot or is a person who has another physical make-up casing elevated D- Dimer) it would be best to be proactive and check her out further. Due to the weekend her needed services are not available--we could wait till Sunday and Sunday to do the needed tests, but RADIO JOURNALIST/Dr. Yarbrough feel that it is wiser to get a consult and testing done at another facility [facility]. Patient initially started to get very upset, but was easily calmed by the RADIO JOURNALIST and her brother's encouragement. We are just trying to give her the best care; and she settled down and said how appreciate she was. 12:15 09/20/2019 Pt was transferred per stretcher/EMS w/ O2 @ 2L/NC to Dr. Louie Manriquez's care [facility]. Patient was stable, cheerful, and accompanied by her brother w/ hospital transfer patient and records including H&P, today's progress note, and EKG enclosed. She remains Full Code as per her request. Franko Allan, LALO-BC
--- NOTE | 2019-09-29 13:44 | PCM.DC ---
Final Diagnosis: Acute Chest Pain w/ elevated D-Dimer (1) Acute chest pain: Status: Acute Code(s): R07.9 - Chest pain, unspecified SNOMED Code(s): 134474574 (2) Elevated d-dimer: Status: Acute Code(s): R79.1 - Abnormal coagulation profile SNOMED Code(s): 408322753 (3) Acute pain of left lower extremity: Status: Acute Code(s): M79.605 - Pain in left leg SNOMED Code(s): 37433747 (4) Pain in left upper arm: Status: Acute Code(s): M79.622 - Pain in left upper arm SNOMED Code(s): 262772258297666 (5) Acute exacerbation of chronic obstructive pulmonary disease: Status: Acute Code(s): J44.1 - Chronic obstructive pulmonary disease with (acute) exacerbation SNOMED Code(s): 059419619 (6) Chronic obstructive pulmonary disease: Status: Chronic SNOMED Code(s): 44704251 Qualifiers: COPD type: COPD with acute exacerbation Qualified Code(s): J44.1 - Chronic obstructive pulmonary disease with (acute) exacerbation (7) Tobacco abuse disorder: Status: Chronic Code(s): Z72.0 - Tobacco use SNOMED Code(s): 45802122 (8) Encounter for tobacco use cessation counseling: Status: Acute Code(s): Z71.6 - Tobacco abuse counseling SNOMED Code(s): 122205602 (9) Depression with anxiety: Status: Chronic Code(s): F41.8 - Other specified anxiety disorders SNOMED Code(s): 98764932 (10) Acute constipation: Status: Acute Code(s): K59.00 - Constipation, unspecified SNOMED Code(s): 643300409 Reason for Hospitalization: Acute Exacerbation of COPD w/ hypoxia and increased anxiety. Admitted for nebs, O2 therapy, IV steroids and monitoring. Prognosis at Discharge: Guarded w/ transfer to higher level of care---[facility] Condition at Discharge: Stable, but guarded; patient had sudden episode of R lung sharp pain w/ SOB and increasing anxiety. Medications at Discharge: Ambulatory Orders Medication Instructions Recorded ibuprofen 600 mg PO QID PRN #30 tablet 04/24/16 alprazolam [Xanax Xr] 2 mg PO BID #60 02/22/17 dextroamphetamine-amphetamine 20 mg PO BID 09/27/18 [Adderall 20 Mg Tablet] albuterol sulfate 1 vial INH Q4-6H PRN #100 vial 03/25/19 albuterol sulfate [Proair Hfa] 1 - 2 puff INHALATION Q4-6H PRN #1 03/25/19 ih budesonide-formoterol [Symbicort 2 puff INHALATION BID #1 ih 03/25/19 160-4.5 Mcg Inhaler] amoxicillin 500 mg PO BID 09/18/19 alprazolam [Xanax] 1 mg PO BID PRN 09/19/19 cholecalciferol (vitamin D3) 50,000 unit PO QMONTH #1 caplet 09/22/19 50,000 unit capsule fluconazole 150 mg tablet 150 mg PO Q3D #2 tab 09/22/19 polyethylene glycol 3350 17 17 gm PO QDAY #119 gm 09/22/19 gram/dose oral powder prednisone 10 mg tablet 10 mg PO BID #6 tab 09/22/19 Lab/Diagnostics: Laboratory Results WBC 11.30 K/ul (4.6-10.2) H D 09/20/19 04:37 RBC 3.93 10^6/ul (4.20-5.40) L 09/20/19 04:37 Hgb 12.5 g/dl (12.0-16.0) 09/20/19 04:37 Hct 37.7 % (37.0-47.0) 09/20/19 04:37 MCV 95.9 fl (81.0-99.0) 09/20/19 04:37 MCH 31.8 pg (27.0-31.0) H 09/20/19 04:37 MCHC 33.2 (31.8-35.4) 09/20/19 04:37 RDW Coeff of Luis Manuel 13.4 % (11.6-14.8) 09/20/19 04:37 Plt Count 222 10^3/uL (140-440) 09/20/19 04:37 Immature Gran % (Auto) 0.6 % (0.0-5.0) 09/20/19 04:37 Neut % (Auto) 92.9 % (42.2-75.2) H 09/20/19 04:37 Lymph % (Auto) 5.2 (10.0-50.0) L 09/20/19 04:37 [place] % (Auto) 1.2 (0-10) 09/20/19 04:37 Eos % (Auto) 0.0 % (0.0-7.0) 09/20/19 04:37 Baso % (Auto) 0.1 % (0.0-3.0) 09/20/19 04:37 Immature Gran # (Auto) 0.1 (0.0-1.0) 09/20/19 04:37 Neut # (Auto) 10.5 K/ul (2.0-6.9) H 09/20/19 04:37 Lymph # (Auto) 0.6 K/uL (0.60-3.4) 09/20/19 04:37 [place] # (Auto) 0.1 K/uL (0.4-2.0) L 09/20/19 04:37 Eos # (Auto) 0.0 K/ul (0.0-0.7) 09/20/19 04:37 Baso # (Auto) 0.0 K/uL (0-0.2) 09/20/19 04:37 Neutrophils % (Manual) 92.0 % (42.2-75.2) H 09/19/19 04:40 Lymphocytes % (Manual) 8.0 % (10.0-50.0) L 09/19/19 04:40 Anisocytosis Not present (NOT PRESENT) 09/19/19 04:40 D-Dimer (Manual) 380.79 ng/mL (<500) 09/18/19 19:00 Puncture Site Lb 09/18/19 19:37 O2 Saturation 95.0 % (95-100) 09/18/19 19:37 ABG pH 7.465 (7.35-7.45) H 09/18/19 19:37 ABG pCO2 32.7 mmHg (35-45) L 09/18/19 19:37 ABG pO2 69.0 mmHg (85-100) L 09/18/19 19:37 ABG HCO3 23.5 (22.0-26.0) 09/18/19 19:37 ABG Total CO2 25 (22.0-28.0) 09/18/19 19:37 ABG Base Excess 0 (-2.0-2.0) 09/18/19 19:37 Cisco Test + 09/18/19 19:37 FiO2 % 21.0 % 09/18/19 19:37 Sodium 142.1 mmol/L (134.5-145) 09/20/19 04:37 Potassium 3.91 mmol/L (3.5-5.1) 09/20/19 04:37 Chloride 112.2 mmol/L (98-107) H 09/20/19 04:37 Carbon Dioxide 23.9 mmol/L (22-30.0) 09/20/19 04:37 Anion Gap 9.91 09/20/19 04:37 BUN 9.4 mg/dL (7-17) 09/20/19 04:37 Creatinine 0.52 mg/dL (0.60-1.30) L 09/20/19 04:37 Estimated GFR (MDRD) 124.00 mL/min 09/20/19 04:37 BUN/Creatinine Ratio 18.07 09/20/19 04:37 Glucose 123.0 mg/dL (74-106) H 09/20/19 04:37 Calcium 8.83 mg/dL (8.4-10.2) 09/20/19 04:37 Total Bilirubin 0.46 mg/dL (0.2-1.3) 09/18/19 19:00 AST 28.2 U/L (14-36) 09/18/19 19:00 ALT 16.3 U/L (0-35) 09/18/19 19:00 Alkaline Phosphatase 119.4 U/L (38-126) 09/18/19 19:00 Troponin I < 0.012 ng/ml (0.0000-0.120) 09/18/19 19:00 Total Protein 8.03 g/dL (6.3-8.2) 09/18/19 19:00 Albumin 4.36 g/dL (3.5-5.0) 09/18/19 19:00 Globulin 3.67 09/18/19 19:00 Albumin/Globulin Ratio 1.18 09/18/19 19:00 Procalcitonin < 0.05 ng/mL (0.09) 09/18/19 19:00 Influ A Molecular Assay Negative by naat (NEGATIVE) 09/18/19 18:55 Influ B Molecular Assay Negative by naat (NEGATIVE) 09/18/19 18:55 RSV Antigen Negative by naat (NEGATIVE) 09/18/19 07:50 Education Provided to Patient and Family: RE: transfer, meaning of elevated D- Dimer w/ all current hospital lab/CXR results reviewed w/ patient and her brother. Discussed differential diagnoses and recommended testing for PE and DVT. Patient verbalized understanding and agrees w/ EMS transport to [facility]. Questions answered. Follow-ups: Transfer to Dr. Manriquez, hospitalist @ [facility]. Discharge Disposition: Transfer (via EMS w/ monitor & O2 per NC 2L.) Hospital Course: [address] [address] Inpatient PHYSICIAN PROGRESS NOTE : [phone] Signed Patient: RAS JORGE RAcct:[id number]: [id number] : 1965Loc: [facility]/Bed: -1 Age/Sex: 54 / FADM Status: DIS INADM Date: 09/18/19 Critical Care Note: 75 minutes See 09/20/2019 MD Progress Notes. VS: Temp 97.8=P 104 & regular=BP 140/79=O2sat 100% on O2 at 2L/NC Patient had episode of sharp severe stabbing 10/10 pain in RLL area that occurred as she was normally sitting at her bedside and slowly turning to her left while talking. The pain caused her to bend forward and hold the area w/ associated yell, gasping and holding breath>>tachypneic breathing for 3-5 minutes. The actual stabbing pain only lasted for less than a minute she stated. She became even more anxious that when she was first examined on daily rounds. Started crying softly stating "I don't want to ; I have 2 grandbabies to live for." It has been noted that with her SoluMedrol 125mg IVP and Q4 DuoNebs that she was getting more anxious despite her Depression w/ Anxiety chronic meds Xanax and Adderall XR. AM exam had also noted new LUE tenderness w/ no chords or spasm in Left upper arm (no known injury), and Left calf mildly erythematous, w/tenderness to palpation, increased temp of area. Dr. Jhon Yarbrough MD, collaborating MD was called to discuss findings and need for US venous studies of LUE & LLE and VQ Scan for PE. Chart review earlier had revealed D-Dimer that was 32 on admission was >350 09/19/2019 late evening. Admission CXR reviewed as well as previous provider and ER notes. Patient is currently here for exacerbation of COPD w/ significant hx for Depression w/ Anxiety. SLURRY CONTROL OPERATOR HELPER reviewed patient assessment (see MD progress note 09/20/2019), and alerted him that no one is here at hospital for needed tests till next week. The anxiety that patient has may be due to her chronic MH, but could also be a sign of PE. She has been on Lovenox 40mg PO daily, but may be in need of other anti-coagulants at this time. Her COPD is advancing and she definitely high risk patient and not candidate to wait for testing w/ this facility options. Dr. Yarbrough agrees w/ transfer to higher level of care and instructed SLURRY CONTROL OPERATOR HELPER to call Transfer Nurse @ [facility] and speak w/ ER MD for transfer acceptance. At approximately 111:10am SLURRY CONTROL OPERATOR HELPER called and spoke with Marcia, transfer nurse, [facility] who took patient name and was given further information per RODY Patrick, with hospital protocol for SLURRY CONTROL OPERATOR HELPER to speak with Hospitalist OC to see if patient would be accepted. About 10minutes later, Dr. Louie Manriquez, hospitalist OC, contacted SLURRY CONTROL OPERATOR HELPER via phone and was given a full report and questions answered as he asked me. It was decided because the patient, needed services that [facility] could not provide on the weekend that [facility] would accept the patient transfer under Dr. Tahir Manriquez's care. Coordinated provider work as needed w/ patient nurse, Celina, RODY. Transfer papers completed as required. EKG ordered prior to transfer w / Dr. Nereida Casarez on unit and asked to read EKG prior to patient transfer. Ekg was NSR w/o abnormalities as reviewed by SLURRY CONTROL OPERATOR HELPER and agreed by Dr. Casarez, assembler skylights. EKG shared w/ EMS and sent w/ hospital records in envelope as prepared. SLURRY CONTROL OPERATOR HELPER spoke w/ patient and her brother, who was at patient bedside, explaining that she currently is stable (patient again re-examined) and explained unchanged from rounding assessment earlier. Explained to patient and family that due to new symptoms (her left upper arm tenderness, left calf pain/erythema/tenderness to palpation) w/ late evening repeat of elevated D-Dimer (which cold me she has a blood clot or is a person who has another physical make-up casing elevated D- Dimer) it would be best to be proactive and check her out further. Due to the weekend her needed services are not available--we could wait till Sunday and Sunday to do the needed tests, but SLURRY CONTROL OPERATOR HELPER/Dr. Yarbrough feel that it is wiser to get a consult and testing done at another facility [facility]. Patient initially started to get very upset, but was easily calmed by the SLURRY CONTROL OPERATOR HELPER and her brother's encouragement. We are just trying to give her the best care; and she settled down and said how appreciate she was. 12:15 09/20/2019 Pt was transferred per stretcher/EMS w/ O2 @ 2L/NC to Dr. Louie Manriquez's care [facility]. Patient was stable, cheerful, and accompanied by her brother w/ hospital transfer patient and records including H&P, today's progress note, and EKG enclosed. She remains Full Code as per her request. Disposition including transfer arrangements and pt/family conference 40 minutes. Franko Allan, LALO- Plan: Transfer to [facility], [place] via EMS. Needs evaluation not available for PE and possible DVT's MACKENZIE arm and LLE.
== END 2019-09-20 12:15 | disposition short-term general hospital (02) | DRG 204 ==
LOC: ED 18:31 → MEDSURG A 20:59
PROVIDERS: ADMIT Nurse Practitioner Family; ATTEND Nurse Practitioner Family
DX: M79.605 Pain in left leg; M79.622 Pain in left upper arm; R07.9 Chest pain, unspecified; R06.2 Wheezing; R06.00 Dyspnea, unspecified; Z72.0 Tobacco use; R06.02 Shortness of breath; Z71.6 Tobacco abuse counseling; K59.00 Constipation, unspecified; R79.1 Abnormal coagulation profile; F41.8 Other specified anxiety disorders; R05 Cough